=== PATIENT | male | born 1945 | race Caucasian/White ===

== ENCOUNTER 2017-04-06 08:57 | Inpatient (IN) | payer MEDICARE, OTHER ==
[~2017-04-06] VITALS: Ht 170.2 cm; Wt 86.0 kg
[2017-04-06 09:51] LABS: BLOOD UREA NITROGEN 16 mg/dL (7-18)
[2017-04-06] MEDS ORDERED: DEXAMETHASONE 4 MG/ML, 1ML ONE (11:45)
[2017-04-06] MEDS ORDERED: DEXAMETHASONE 4 MG/ML, 1ML IVPush ONE (12:00)
[2017-04-06] MEDS ORDERED: LEVETIRACETAM 500 MG in SODIUM CHLORIDE 0.9% 100 ML IV ONE (12:00)
[2017-04-06] MEDS ORDERED: ONDANSETRON 2MG/ML, 2ML IVPush PRN (13:00)
[2017-04-06] MEDS ORDERED: ENALAPRILAT 1.25 MG/ML, 2ML IVPush PRN (13:00)
[2017-04-06] MEDS ORDERED: POLYETHYLENE GLYCOL 17 GM PACKET PO PRN (13:00)
[2017-04-06] MEDS ORDERED: BISACODYL 10 MG SUPP PR PRN (13:00)
[2017-04-06] MEDS ORDERED: LABETALOL 5MG/ML, 20ML IVPush PRN (13:00)
[2017-04-06] MEDS ORDERED: DOCUSATE 100 MG CAPSULE PO PRN (13:00)
[2017-04-06] MEDS ORDERED: ONDANSETRON ODT 4 MG PO PRN (13:00)
[2017-04-06] MEDS ORDERED: GADOBUTROL 10 MMOL/10 ML PFS ONE (13:02)
[2017-04-06 13:59] VITALS: BP 15/91
[2017-04-06] MEDS: DEXAMETHASONE 4 MG/ML, 1ML IVPush SCH ×2 (14:52→21:34)
[2017-04-06] MEDS: POTASSIUM CHLORIDE 10 MEQ in SODIUM CHLORIDE 0.9% 1,000 ML IV SCH (14:52)
[2017-04-06 18:59] VITALS: BP 147/75
[2017-04-07 00:16] VITALS: BP 122/71
[2017-04-07] MEDS: LEVETIRACETAM 500 MG in SODIUM CHLORIDE 0.9% 100 ML IV SCH ×2 (00:18→13:13)
[2017-04-07] MEDS: POTASSIUM CHLORIDE 10 MEQ in SODIUM CHLORIDE 0.9% 1,000 ML IV SCH (04:45)
[2017-04-07] MEDS: DEXAMETHASONE 4 MG/ML, 1ML IVPush SCH ×2 (04:45→10:17)
[2017-04-07 10:00] VITALS: BP 144/75
[2017-04-07 14:37] VITALS: BP 133/81
[2017-04-07] MEDS ORDERED: DEXA4TAB PO (16:27)
[2017-04-07] MEDS ORDERED: LEVE500T53 PO (16:27)
[2017-04-07] MEDS ORDERED: DEXAMETHASONE 4 MG TABLET PO SCH (17:00)
[2017-04-07] MEDS ORDERED: LEVETIRACETAM 500 MG TABLET PO SCH (21:00)
[2017-04-10] MEDS ORDERED: LEVE500T53 PO (06:12)
[2017-04-10] MEDS ORDERED: DEXAMETHASONE PO (06:12)
[2017-04-13] MEDS ORDERED: OXYC-302 PO (08:49)
[2017-04-15] MEDS ORDERED: DEXA1.5T5 PO (10:22)
== END 2017-04-07 21:57 | disposition home or self-care (01) | DRG 54 ==
LOC: ED 12:01 → 4EST 12:52
PROVIDERS: ADMIT Internal Medicine; ATTEND Internal Medicine
DX: C71.3 Malignant neoplasm of parietal lobe (principal); G93.6 Cerebral edema; G81.91 Hemiplegia, unspecified affecting right dominant side; G93.89 Other specified disorders of brain; M43.12 Spondylolisthesis, cervical region; K59.09 Other constipation; I10 Essential (primary) hypertension; R22.0 Localized swelling, mass and lump, head; Z87.891 Personal history of nicotine dependence
CPT/HCPCS: 36415; 70450; 70553; 71010; 71260; 72050; 74177; 80048; 82040; 85025; 85610; 85730; 93005; 96365; 96366; 96375; A9585; J1100; J1953; J3480; J7030

== ENCOUNTER → 2017-05-08 | Outpatient (CLI) | payer MEDICARE ==
[~2017-05-08] MED LIST: DEXA1.5T5 PO; DEXA4TAB PO; DEXAMETHASONE PO; GADOBUTROL 10 MMOL/10 ML PFS ONE; LEVE500T53 PO; OXYC-302 PO; TAMS0.4C2 PO
== END | disposition home or self-care (01) ==
LOC: CFH 15:14
PROVIDERS: ATTEND Internal Medicine Hematology & Oncology
DX: G93.89 Other specified disorders of brain (principal); C83.31 Diffuse large B-cell lymphoma, lymph nodes of head, face, and neck; Z98.890 Other specified postprocedural states
CPT/HCPCS: 70553; A9585

== ENCOUNTER 2017-05-11 08:00 | Inpatient (IN) | payer MEDICARE ==
[~2017-05-11] VITALS: Ht 167.6 cm; Wt 87.9 kg
[~2017-05-11 08:00] MED LIST changes: -GADOBUTROL 10 MMOL/10 ML PFS ONE; -TAMS0.4C2 PO
[2017-05-11 08:45] VITALS: BP 124/84
[2017-05-11 10:26] LABS: HEMATOCRIT 42.8 % (39.2-51.8); HEMOGLOBIN 14.5 g/dL (13.7-18.0); WHITE BLOOD COUNT 5.5 x10^3/uL (3.4-10)
[2017-05-11 10:37] LABS: ASPARTATE AMINO TRANSFERASE 13 U/L (15-37); BLOOD UREA NITROGEN 13 mg/dL (7-18)
[2017-05-11] MEDS: SODIUM BICARBONATE 650 MG TABLET PO SCH ×2 (13:13→22:31)
[2017-05-11] MEDS: SODIUM ACETATE 150 MEQ in DEXTROSE 5% 1,000 ML IV SCH ×2 (13:13→22:31)
[2017-05-11 14:17] VITALS: BP 126/81
[2017-05-11] MEDS ORDERED: TAMS0.4C2 PO (14:20)
[2017-05-11] MEDS ORDERED: ONDANSETRON 8 MG, DEXAMETHASONE 10 MG in SODIUM CHLORIDE 0.9% 50 ML IVPB ONE (17:00)
[2017-05-11] MEDS ORDERED: FAMOTIDINE 20 MG/2 ML IVPush ONE (17:00)
[2017-05-11] MEDS ORDERED: DIPHENHYDRAMINE 50 MG/ML, 1ML IVPush ONE (17:00)
[2017-05-11] MEDS ORDERED: SODIUM CHLORIDE 0.9% IV ONE (17:30)
[2017-05-11] MEDS ORDERED: METHOTREXATE IV ONE (17:30)
[2017-05-11 19:49] VITALS: BP 132/80
[2017-05-11] MEDS: ENOXAPARIN 40 MG/0.4 ML SQ SCH (20:18)
[2017-05-11] MEDS: LEVETIRACETAM 500 MG TABLET PO SCH (20:19)
[2017-05-12 03:02] VITALS: BP 124/70
[2017-05-12 07:20] VITALS: BP 119/72
[2017-05-12] MEDS ORDERED: ONDANSETRON ODT 8 MG PO PRN (08:00)
[2017-05-12] MEDS: LEVETIRACETAM 500 MG TABLET PO SCH ×2 (09:20→20:12)
[2017-05-12] MEDS: TAMSULOSIN 0.4 MG CAP.ER.24H PO SCH (09:20)
[2017-05-12] MEDS: predniSOLONE OPHTH SUSP 1%, 5ML EACHEYE SCH ×4 (09:21→20:13)
[2017-05-12] MEDS: SODIUM BICARBONATE 650 MG TABLET PO SCH ×2 (09:21→20:13)
[2017-05-12] MEDS ORDERED: ONDANSETRON 8 MG, DEXAMETHASONE 10 MG in SODIUM CHLORIDE 0.9% 50 ML IVPB SCH (10:00)
[2017-05-12] MEDS ORDERED: SODIUM CHLORIDE 0.9% IV SCH (10:30)
[2017-05-12] MEDS ORDERED: CYTARABINE IV SCH (10:30)
[2017-05-12] MEDS: SODIUM ACETATE 150 MEQ in DEXTROSE 5% 1,000 ML IV SCH ×2 (12:43→22:43)
[2017-05-12 13:15] VITALS: BP 116/68
[2017-05-12] MEDS: ONDANSETRON 8 MG, DEXAMETHASONE 10 MG in SODIUM CHLORIDE 0.9% 50 ML IVPB SCH (16:16)
[2017-05-12] MEDS: FAMOTIDINE 20 MG/2 ML IVPush SCH (16:16)
[2017-05-12] MEDS: DIPHENHYDRAMINE 50 MG/ML, 1ML IVPush SCH (16:16)
[2017-05-12] MEDS: OXYcodone/APAP 5/325MG TABLET PO PRN (16:46)
[2017-05-12] MEDS: CYTARABINE IV SCH (17:37)
[2017-05-12] MEDS: SODIUM CHLORIDE 0.9% IV SCH ×2 (17:37→22:43)
[2017-05-12] MEDS ORDERED: LORazepam 0.5MG TABLET PO PRN (19:00)
[2017-05-12] MEDS: ENOXAPARIN 40 MG/0.4 ML SQ SCH (20:13)
[2017-05-12 20:35] VITALS: BP 125/69
[2017-05-12] MEDS: LEUCOVORIN IV SCH (22:43)
[2017-05-13] MEDS: predniSOLONE OPHTH SUSP 1%, 5ML EACHEYE SCH ×6 (00:20→21:10)
[2017-05-13 02:03] VITALS: BP 112/57
[2017-05-13] MEDS: LEUCOVORIN IV SCH ×3 (04:39→19:45)
[2017-05-13] MEDS: SODIUM CHLORIDE 0.9% IV SCH ×5 (04:39→19:45)
[2017-05-13] MEDS: CYTARABINE IV SCH ×2 (05:08→18:14)
[2017-05-13 05:30] LABS: ASPARTATE AMINO TRANSFERASE 18 U/L (15-37); BLOOD UREA NITROGEN 16 mg/dL (7-18)
[2017-05-13 05:34] LABS: HEMATOCRIT 37.5 % (39.2-51.8); HEMOGLOBIN 12.6 g/dL (13.7-18.0); WHITE BLOOD COUNT 8.9 x10^3/uL (3.4-10)
[2017-05-13 07:42] VITALS: BP 117/63
[2017-05-13] MEDS: SODIUM BICARBONATE 650 MG TABLET PO SCH ×2 (11:49→17:14)
[2017-05-13] MEDS: TAMSULOSIN 0.4 MG CAP.ER.24H PO SCH (11:50)
[2017-05-13] MEDS: DOCUSATE 100 MG CAPSULE PO SCH (11:50)
[2017-05-13] MEDS: LEVETIRACETAM 500 MG TABLET PO SCH ×2 (11:50→21:10)
[2017-05-13 14:02] VITALS: BP 153/89
[2017-05-13] MEDS ORDERED: DIPHENHYDRAMINE 50 MG/ML, 1ML ONE (17:11)
[2017-05-13] MEDS: DIPHENHYDRAMINE 50 MG/ML, 1ML IVPush SCH (17:14)
[2017-05-13] MEDS: ONDANSETRON 8 MG, DEXAMETHASONE 10 MG in SODIUM CHLORIDE 0.9% 50 ML IVPB SCH (17:14)
[2017-05-13] MEDS: SODIUM ACETATE 150 MEQ in DEXTROSE 5% 1,000 ML IV SCH ×2 (17:14→17:52)
[2017-05-13] MEDS: FAMOTIDINE 20 MG/2 ML IVPush SCH (17:14)
[2017-05-13 18:39] VITALS: BP 123/67
[2017-05-13] MEDS: ENOXAPARIN 40 MG/0.4 ML SQ SCH (21:10)
[2017-05-14] MEDS: predniSOLONE OPHTH SUSP 1%, 5ML EACHEYE SCH ×7 (00:29→23:57)
[2017-05-14 00:46] VITALS: BP 118/66
[2017-05-14] MEDS: LEUCOVORIN IV SCH ×4 (01:33→20:06)
[2017-05-14] MEDS: SODIUM CHLORIDE 0.9% IV SCH ×5 (01:33→20:06)
[2017-05-14] MEDS: SODIUM ACETATE 150 MEQ in DEXTROSE 5% 1,000 ML IV SCH ×5 (02:50→22:20)
[2017-05-14 04:23] LABS: HEMATOCRIT 35.2 % (39.2-51.8); HEMOGLOBIN 11.9 g/dL (13.7-18.0); WHITE BLOOD COUNT 7.9 x10^3/uL (3.4-10)
[2017-05-14 04:31] LABS: ASPARTATE AMINO TRANSFERASE 24 U/L (15-37); BLOOD UREA NITROGEN 22 mg/dL (7-18)
[2017-05-14] MEDS: CYTARABINE IV SCH (05:21)
[2017-05-14 08:00] VITALS: BP 105/59
[2017-05-14] MEDS: SODIUM BICARBONATE 650 MG TABLET PO SCH (08:22)
[2017-05-14] MEDS: TAMSULOSIN 0.4 MG CAP.ER.24H PO SCH (08:25)
[2017-05-14] MEDS: LEVETIRACETAM 500 MG TABLET PO SCH ×2 (08:25→20:06)
[2017-05-14] MEDS: DOCUSATE 100 MG CAPSULE PO SCH (08:25)
[2017-05-14 13:00] VITALS: BP 114/65
[2017-05-14 18:56] VITALS: BP 126/64
[2017-05-14] MEDS: ENOXAPARIN 40 MG/0.4 ML SQ SCH (20:06)
[2017-05-14] MEDS ORDERED: TBO-FILGRASTIM 480 MCG/0.8 ML SQ SCH (22:00)
[2017-05-15 01:36] VITALS: BP 122/67
[2017-05-15] MEDS: LEUCOVORIN IV SCH ×4 (01:42→21:15)
[2017-05-15] MEDS: OXYcodone/APAP 5/325MG TABLET PO PRN ×2 (01:42→13:08)
[2017-05-15] MEDS: SODIUM CHLORIDE 0.9% IV SCH ×4 (01:42→21:15)
[2017-05-15] MEDS: predniSOLONE OPHTH SUSP 1%, 5ML EACHEYE SCH ×6 (03:57→23:48)
[2017-05-15 04:26] LABS: HEMATOCRIT 32.8 % (39.2-51.8); HEMOGLOBIN 11.1 g/dL (13.7-18.0); WHITE BLOOD COUNT 5.8 x10^3/uL (3.4-10)
[2017-05-15 04:29] LABS: ASPARTATE AMINO TRANSFERASE 24 U/L (15-37); BLOOD UREA NITROGEN 19 mg/dL (7-18)
[2017-05-15] MEDS: SODIUM ACETATE 150 MEQ in DEXTROSE 5% 1,000 ML IV SCH (07:10)
[2017-05-15 08:05] VITALS: BP 120/60
[2017-05-15] MEDS: TAMSULOSIN 0.4 MG CAP.ER.24H PO SCH (09:12)
[2017-05-15] MEDS: TBO-FILGRASTIM 480 MCG/0.8 ML SQ SCH (09:12)
[2017-05-15] MEDS: LEVETIRACETAM 500 MG TABLET PO SCH ×2 (09:12→21:16)
[2017-05-15] MEDS: DOCUSATE 100 MG CAPSULE PO SCH (09:12)
[2017-05-15 14:24] VITALS: BP 116/63
[2017-05-15] MEDS ORDERED: POTASSIUM CHLORIDE 20 MEQ TAB.ER.PRT PO ONE (14:30)
[2017-05-15 20:15] VITALS: BP 119/73
[2017-05-15] MEDS: ENOXAPARIN 40 MG/0.4 ML SQ SCH (21:16)
[2017-05-16] MEDS: SODIUM CHLORIDE 0.9% IV SCH ×3 (02:01→13:55)
[2017-05-16] MEDS: LEUCOVORIN IV SCH ×3 (02:01→13:55)
[2017-05-16 02:03] VITALS: BP 138/86
[2017-05-16] MEDS: predniSOLONE OPHTH SUSP 1%, 5ML EACHEYE SCH ×3 (04:15→23:09)
[2017-05-16 04:26] LABS: HEMATOCRIT 34.8 % (39.2-51.8); HEMOGLOBIN 11.9 g/dL (13.7-18.0); WHITE BLOOD COUNT 7.9 x10^3/uL (3.4-10)
[2017-05-16 04:36] LABS: ASPARTATE AMINO TRANSFERASE 24 U/L (15-37); BLOOD UREA NITROGEN 20 mg/dL (7-18)
[2017-05-16] MEDS: LEVETIRACETAM 500 MG TABLET PO SCH ×2 (08:37→21:22)
[2017-05-16] MEDS: TAMSULOSIN 0.4 MG CAP.ER.24H PO SCH (08:37)
[2017-05-16] MEDS: DOCUSATE 100 MG CAPSULE PO SCH (08:37)
[2017-05-16] MEDS: TBO-FILGRASTIM 480 MCG/0.8 ML SQ SCH (08:41)
[2017-05-16 09:05] VITALS: BP 143/75
[2017-05-16] MEDS ORDERED: ONDA8TAB16 SL (10:16)
[2017-05-16] MEDS ORDERED: PRED5DRO15 EACHEYE (10:21)
[2017-05-16] MEDS ORDERED: CIPR500T3 PO (10:24)
[2017-05-16] MEDS ORDERED: ACYC-114 PO (10:27)
[2017-05-16] MEDS ORDERED: PRED1DRO EACHEYE (10:32)
[2017-05-16 14:18] VITALS: BP 121/73
[2017-05-16 21:04] VITALS: BP 118/70
[2017-05-16] MEDS: ENOXAPARIN 40 MG/0.4 ML SQ SCH (21:22)
[2017-05-17] MEDS: predniSOLONE OPHTH SUSP 1%, 5ML EACHEYE SCH ×6 (03:04→23:32)
[2017-05-17 03:13] LABS: HEMATOCRIT 36.1 % (39.2-51.8); HEMOGLOBIN 12.1 g/dL (13.7-18.0)
[2017-05-17 03:16] VITALS: BP 121/72
[2017-05-17 03:24] LABS: BLOOD UREA NITROGEN 26 mg/dL (7-18)
[2017-05-17 03:26] LABS: ASPARTATE AMINO TRANSFERASE 19 U/L (15-37)
[2017-05-17] MEDS: LEVETIRACETAM 500 MG TABLET PO SCH ×2 (07:41→21:46)
[2017-05-17] MEDS: TAMSULOSIN 0.4 MG CAP.ER.24H PO SCH (07:41)
[2017-05-17] MEDS: DOCUSATE 100 MG CAPSULE PO SCH (07:41)
[2017-05-17 07:54] VITALS: BP 122/77
[2017-05-17] MEDS: TBO-FILGRASTIM 480 MCG/0.8 ML SQ SCH (10:47)
[2017-05-17 13:51] VITALS: BP 114/71
[2017-05-17 19:07] VITALS: BP 123/76
[2017-05-17] MEDS: ENOXAPARIN 40 MG/0.4 ML SQ SCH (21:47)
[2017-05-18 01:14] VITALS: BP 120/79
[2017-05-18] MEDS: predniSOLONE OPHTH SUSP 1%, 5ML EACHEYE SCH ×2 (03:55→07:30)
[2017-05-18 07:13] VITALS: BP 122/81
[2017-05-18] MEDS: TBO-FILGRASTIM 480 MCG/0.8 ML SQ SCH (08:47)
[2017-05-18] MEDS: TAMSULOSIN 0.4 MG CAP.ER.24H PO SCH (08:48)
[2017-05-18] MEDS: DOCUSATE 100 MG CAPSULE PO SCH (08:48)
[2017-05-18] MEDS: LEVETIRACETAM 500 MG TABLET PO SCH (08:48)
[2017-05-23] MEDS ORDERED: LEVO750T26 PO (11:49)
== END 2017-05-18 13:10 | disposition home or self-care (01) | DRG 846 ==
LOC: 3NW 08:00
PROVIDERS: ADMIT Internal Medicine Hematology & Oncology; ATTEND Internal Medicine Hematology & Oncology
DX: Z51.11 Encounter for antineoplastic chemotherapy (principal); E43 Unspecified severe protein-calorie malnutrition; C83.31 Diffuse large B-cell lymphoma, lymph nodes of head, face, and neck; G81.94 Hemiplegia, unspecified affecting left nondominant side; I10 Essential (primary) hypertension; G47.00 Insomnia, unspecified; K59.00 Constipation, unspecified; N40.0 Benign prostatic hyperplasia without lower urinary tract symptoms
CPT/HCPCS: 36415; 80053; 80375; 81003; 83735; 84560; 85025; J1100; J1650; J2405; J7070; J9100; J9250; G0480; J0640; J1200; J1447; J7030; J7050; S0028

== ENCOUNTER 2017-06-01 10:21 | Inpatient (IN) | payer MEDICARE ==
[~2017-06-01] VITALS: Ht 167.6 cm; Wt 87.2 kg
[~2017-06-01 10:21] MED LIST changes: +ACYC-114 PO; +CIPR500T3 PO; +LEVO750T26 PO; +ONDA8TAB16 SL; +PRED1DRO EACHEYE; +PRED5DRO15 EACHEYE; +TAMS0.4C2 PO
[2017-06-01 10:59] VITALS: BP 122/71
[2017-06-01] MEDS ORDERED: ONDA8TAB15 PO (11:26)
[2017-06-01] MEDS ORDERED: OXYC1TAB7 PO (11:29)
[2017-06-01] MEDS ORDERED: PRED1DRO EACHEYE (11:32)
[2017-06-01 11:34] LABS: HEMATOCRIT 30.4 % (39.2-51.8); HEMOGLOBIN 10.4 g/dL (13.7-18.0); WHITE BLOOD COUNT 17.9 x10^3/uL (3.4-10)
[2017-06-01 11:41] LABS: ASPARTATE AMINO TRANSFERASE 23 U/L (15-37); BLOOD UREA NITROGEN 13 mg/dL (7-18)
[2017-06-01] MEDS ORDERED: PROCHLORPERAZINE 25 MG SUPP PR PRN (12:30)
[2017-06-01] MEDS ORDERED: SENNA/DOCUSATE TABLET PO PRN (12:30)
[2017-06-01] MEDS ORDERED: PROCHLORPERAZINE 10MG TABLET PO PRN (12:30)
[2017-06-01] MEDS ORDERED: LOPERAMIDE 2 MG CAPSULE PO PRN (12:30)
[2017-06-01] MEDS ORDERED: BISACODYL 5 MG EC TABLET PO PRN (12:30)
[2017-06-01] MEDS ORDERED: PROCHLORPERAZINE 5 MG/ML, 2ML IVPush PRN (12:30)
[2017-06-01] MEDS ORDERED: NYSTATIN 500,000 UNITS/5 ML UDC PO PRN (12:30)
[2017-06-01] MEDS ORDERED: LOPERAMIDE 2 MG CAPSULE PO ONE (12:30)
[2017-06-01] MEDS ORDERED: ONDANSETRON 8 MG TABLET PO PRN (12:30)
[2017-06-01] MEDS ORDERED: ONDANSETRON 2MG/ML, 2ML IVPush PRN (12:30)
[2017-06-01] MEDS ORDERED: maalox/diphenh/lido/sucralfate 5 ML PO PRN (12:30)
[2017-06-01 12:53] LABS: DIFF TOTAL CELLS COUNTED 100 CELL DIFF
[2017-06-01 12:56] LABS: VERIFY COUNTS? YES
[2017-06-01 12:57] LABS: GIANT PLATELETS 1+; POLYCHROMASIA 2+
[2017-06-01] MEDS: SODIUM BICARB 8.4%,50ML SYR. 150 MEQ in DEXTROSE 5% 1,000 ML IV SCH ×2 (14:16→23:56)
[2017-06-01 17:56] VITALS: BP 127/76
[2017-06-01] MEDS: LEVETIRACETAM 500 MG TABLET PO SCH (19:53)
[2017-06-01] MEDS: ACYCLOVIR 200 MG CAPSULE PO SCH (19:53)
[2017-06-01 20:21] VITALS: BP 130/77
[2017-06-02 02:47] VITALS: BP 123/73
[2017-06-02] MEDS: OXYcodone/APAP 5/325MG TABLET PO PRN ×2 (02:54→09:18)
[2017-06-02] MEDS: LEVETIRACETAM 500 MG TABLET PO SCH ×2 (08:19→19:51)
[2017-06-02] MEDS: ACYCLOVIR 200 MG CAPSULE PO SCH ×2 (08:19→19:51)
[2017-06-02] MEDS: TAMSULOSIN 0.4 MG CAP.ER.24H PO SCH (08:19)
[2017-06-02 09:09] VITALS: BP 113/68
[2017-06-02] MEDS: SODIUM BICARB 8.4%,50ML SYR. 150 MEQ in DEXTROSE 5% 1,000 ML IV SCH ×2 (09:11→18:21)
[2017-06-02] MEDS ORDERED: SODIUM CHLORIDE 0.9% IV ONE ×2 (11:00→11:30)
[2017-06-02] MEDS ORDERED: METHOTREXATE IV ONE ×2 (11:00→11:30)
[2017-06-02] MEDS: FAMOTIDINE 20 MG/2 ML IVPush SCH (11:09)
[2017-06-02] MEDS: DIPHENHYDRAMINE 50 MG/ML, 1ML IVPush SCH (11:09)
[2017-06-02] MEDS: ONDANSETRON 8 MG, DEXAMETHASONE 10 MG in SODIUM CHLORIDE 0.9% 50 ML IVPB SCH (11:09)
[2017-06-02] MEDS: ENOXAPARIN 40 MG/0.4 ML SQ SCH (11:14)
[2017-06-02 13:33] VITALS: BP 113/69
[2017-06-02 15:06] VITALS: BP 136/81
[2017-06-02 20:10] VITALS: BP 127/69
[2017-06-03 02:22] VITALS: BP 124/68
[2017-06-03] MEDS: SODIUM BICARB 8.4%,50ML SYR. 150 MEQ in DEXTROSE 5% 1,000 ML IV SCH ×2 (04:24→13:58)
[2017-06-03 07:50] VITALS: BP 127/70
[2017-06-03] MEDS: ACYCLOVIR 200 MG CAPSULE PO SCH ×2 (10:09→21:13)
[2017-06-03] MEDS: LEVETIRACETAM 500 MG TABLET PO SCH ×2 (10:10→21:13)
[2017-06-03] MEDS: TAMSULOSIN 0.4 MG CAP.ER.24H PO SCH (10:10)
[2017-06-03 12:13] LABS: HEMATOCRIT 26.3 % (39.2-51.8); HEMOGLOBIN 9.1 g/dL (13.7-18.0); WHITE BLOOD COUNT 19.9 x10^3/uL (3.4-10)
[2017-06-03] MEDS: predniSOLONE OPHTH SUSP 1%, 5ML EACHEYE SCH ×3 (12:16→21:00)
[2017-06-03] MEDS: DIPHENHYDRAMINE 50 MG/ML, 1ML IVPush SCH (12:24)
[2017-06-03 12:25] LABS: BLOOD UREA NITROGEN 13 mg/dL (7-18)
[2017-06-03] MEDS: FAMOTIDINE 20 MG/2 ML IVPush SCH (12:25)
[2017-06-03] MEDS: ONDANSETRON 8 MG, DEXAMETHASONE 10 MG in SODIUM CHLORIDE 0.9% 50 ML IVPB SCH (12:25)
[2017-06-03] MEDS: ENOXAPARIN 40 MG/0.4 ML SQ SCH (12:25)
[2017-06-03 12:28] LABS: ASPARTATE AMINO TRANSFERASE 20 U/L (15-37)
[2017-06-03 12:50] LABS: DIFF TOTAL CELLS COUNTED 100 CELL DIFF
[2017-06-03 12:52] LABS: POLYCHROMASIA 1+; VERIFY COUNTS? YES
[2017-06-03 13:32] VITALS: BP 105/53
[2017-06-03] MEDS: SODIUM CHLORIDE 0.9% IV SCH ×3 (13:56→23:02)
[2017-06-03] MEDS: CYTARABINE IV SCH (13:56)
[2017-06-03] MEDS: LEUCOVORIN IV SCH ×2 (17:16→23:02)
[2017-06-03 19:40] VITALS: BP 132/70
[2017-06-04] MEDS: predniSOLONE OPHTH SUSP 1%, 5ML EACHEYE SCH ×6 (01:00→20:43)
[2017-06-04 01:24] VITALS: BP 134/75
[2017-06-04] MEDS: SODIUM CHLORIDE 0.9% IV SCH ×5 (01:39→18:28)
[2017-06-04] MEDS: CYTARABINE IV SCH ×2 (01:39→13:47)
[2017-06-04] MEDS: DEXTROSE 5% IV SCH ×2 (01:56→16:49)
[2017-06-04] MEDS: SODIUM BICARB 8.4% IV SCH ×2 (01:56→16:49)
[2017-06-04] MEDS: LEUCOVORIN IV SCH ×3 (05:18→18:28)
[2017-06-04 05:45] LABS: HEMATOCRIT 26.1 % (39.2-51.8); HEMOGLOBIN 9.1 g/dL (13.7-18.0); WHITE BLOOD COUNT 12.1 x10^3/uL (3.4-10)
[2017-06-04 06:07] LABS: BLOOD UREA NITROGEN 19 mg/dL (7-18)
[2017-06-04 06:10] LABS: ASPARTATE AMINO TRANSFERASE 27 U/L (15-37)
[2017-06-04 07:04] VITALS: BP 128/72
[2017-06-04] MEDS: LEVETIRACETAM 500 MG TABLET PO SCH ×2 (09:42→20:43)
[2017-06-04] MEDS: TAMSULOSIN 0.4 MG CAP.ER.24H PO SCH (09:42)
[2017-06-04] MEDS: ACYCLOVIR 200 MG CAPSULE PO SCH ×2 (09:42→20:43)
[2017-06-04] MEDS: FAMOTIDINE 20 MG/2 ML IVPush SCH (11:25)
[2017-06-04] MEDS: ENOXAPARIN 40 MG/0.4 ML SQ SCH (11:27)
[2017-06-04] MEDS: DIPHENHYDRAMINE 50 MG/ML, 1ML IVPush SCH (11:35)
[2017-06-04] MEDS: ONDANSETRON 8 MG, DEXAMETHASONE 10 MG in SODIUM CHLORIDE 0.9% 50 ML IVPB SCH (12:14)
[2017-06-04 13:45] VITALS: BP 119/68
[2017-06-04] MEDS ORDERED: DEXTROSE 5% IV SCH ×2 (14:00→17:00)
[2017-06-04] MEDS ORDERED: SODIUM BICARB 8.4% IV SCH ×2 (14:00→17:00)
[2017-06-04] MEDS ORDERED: SODIUM BICARB 8.4%,50ML SYR. 150 MEQ in DEXTROSE 5% 1,000 ML IV SCH (14:00)
[2017-06-04 20:16] VITALS: BP 125/76
[2017-06-05] MEDS: LEUCOVORIN IV SCH ×4 (01:16→19:54)
[2017-06-05] MEDS: SODIUM CHLORIDE 0.9% IV SCH ×5 (01:16→19:54)
[2017-06-05] MEDS: predniSOLONE OPHTH SUSP 1%, 5ML EACHEYE SCH ×6 (01:17→19:56)
[2017-06-05] MEDS: CYTARABINE IV SCH (01:47)
[2017-06-05 02:32] VITALS: BP 137/80
[2017-06-05] MEDS: OXYcodone/APAP 5/325MG TABLET PO PRN ×3 (03:05→16:23)
[2017-06-05 05:55] LABS: HEMATOCRIT 24.3 % (39.2-51.8); HEMOGLOBIN 8.5 g/dL (13.7-18.0); WHITE BLOOD COUNT 8.5 x10^3/uL (3.4-10)
[2017-06-05 06:10] LABS: ASPARTATE AMINO TRANSFERASE 36 U/L (15-37); BLOOD UREA NITROGEN 21 mg/dL (7-18)
[2017-06-05 07:08] VITALS: BP 128/76
[2017-06-05] MEDS: ACYCLOVIR 200 MG CAPSULE PO SCH ×2 (07:43→19:56)
[2017-06-05] MEDS: LEVETIRACETAM 500 MG TABLET PO SCH ×2 (07:43→19:55)
[2017-06-05] MEDS: TAMSULOSIN 0.4 MG CAP.ER.24H PO SCH (07:43)
[2017-06-05 12:41] VITALS: BP 115/70
[2017-06-05] MEDS: SODIUM BICARB 8.4% IV SCH ×2 (13:15→22:51)
[2017-06-05] MEDS: ENOXAPARIN 40 MG/0.4 ML SQ SCH (13:15)
[2017-06-05] MEDS: DEXTROSE 5% IV SCH ×2 (13:15→22:51)
[2017-06-05 18:56] VITALS: BP 112/67
[2017-06-06 00:55] VITALS: BP 116/75
[2017-06-06] MEDS: SODIUM CHLORIDE 0.9% IV SCH ×4 (01:32→19:37)
[2017-06-06] MEDS: predniSOLONE OPHTH SUSP 1%, 5ML EACHEYE SCH ×6 (01:32→19:36)
[2017-06-06] MEDS: LEUCOVORIN IV SCH ×4 (01:32→19:37)
[2017-06-06] MEDS: TBO-FILGRASTIM 480 MCG/0.8 ML SQ SCH (05:15)
[2017-06-06 05:37] LABS: HEMATOCRIT 24.7 % (39.2-51.8); HEMOGLOBIN 8.6 g/dL (13.7-18.0); WHITE BLOOD COUNT 4.9 x10^3/uL (3.4-10)
[2017-06-06 05:47] LABS: BLOOD UREA NITROGEN 16 mg/dL (7-18)
[2017-06-06 05:52] LABS: ASPARTATE AMINO TRANSFERASE 71 U/L (15-37)
[2017-06-06] MEDS: DEXTROSE 5% IV SCH ×3 (06:16→23:31)
[2017-06-06] MEDS: SODIUM BICARB 8.4% IV SCH ×3 (06:16→23:31)
[2017-06-06] MEDS: TAMSULOSIN 0.4 MG CAP.ER.24H PO SCH (08:04)
[2017-06-06] MEDS: LEVETIRACETAM 500 MG TABLET PO SCH ×2 (08:04→19:37)
[2017-06-06] MEDS: ACYCLOVIR 200 MG CAPSULE PO SCH ×2 (08:04→19:37)
[2017-06-06 08:50] VITALS: BP 110/70
[2017-06-06 14:21] VITALS: BP 116/74
[2017-06-06] MEDS: ENOXAPARIN 40 MG/0.4 ML SQ SCH (14:23)
[2017-06-06] MEDS: OMEPRAZOLE 20 MG CAPSULE.DR PO SCH (14:24)
[2017-06-06 18:21] VITALS: BP 119/76
[2017-06-07] MEDS: predniSOLONE OPHTH SUSP 1%, 5ML EACHEYE SCH ×3 (01:25→08:31)
[2017-06-07] MEDS: SODIUM CHLORIDE 0.9% IV SCH ×4 (01:27→20:20)
[2017-06-07] MEDS: LEUCOVORIN IV SCH ×4 (01:27→20:20)
[2017-06-07 02:08] VITALS: BP 99/64
[2017-06-07] MEDS: TBO-FILGRASTIM 480 MCG/0.8 ML SQ SCH (04:49)
[2017-06-07 05:29] LABS: HEMATOCRIT 23.5 % (39.2-51.8); HEMOGLOBIN 8.1 g/dL (13.7-18.0); WHITE BLOOD COUNT 16.7 x10^3/uL (3.4-10)
[2017-06-07 05:52] LABS: ASPARTATE AMINO TRANSFERASE 40 U/L (15-37); BLOOD UREA NITROGEN 17 mg/dL (7-18)
[2017-06-07] MEDS: OMEPRAZOLE 20 MG CAPSULE.DR PO SCH (08:30)
[2017-06-07] MEDS: LEVETIRACETAM 500 MG TABLET PO SCH ×2 (08:31→20:21)
[2017-06-07] MEDS: ACYCLOVIR 200 MG CAPSULE PO SCH ×2 (08:31→20:21)
[2017-06-07] MEDS: TAMSULOSIN 0.4 MG CAP.ER.24H PO SCH (08:31)
[2017-06-07 09:07] VITALS: BP 117/76
[2017-06-07] MEDS: ENOXAPARIN 40 MG/0.4 ML SQ SCH (12:41)
[2017-06-07 14:01] VITALS: BP 113/75
[2017-06-07] MEDS ORDERED: SODIUM BICARB 8.4% IV SCH (17:00)
[2017-06-07] MEDS ORDERED: DEXTROSE 5% IV SCH (17:00)
[2017-06-07 19:35] VITALS: BP 107/68
[2017-06-08 01:41] VITALS: BP 125/73
[2017-06-08] MEDS: LEUCOVORIN IV SCH ×2 (01:44→09:16)
[2017-06-08] MEDS: SODIUM CHLORIDE 0.9% IV SCH ×2 (01:44→09:16)
[2017-06-08] MEDS: TBO-FILGRASTIM 480 MCG/0.8 ML SQ SCH (04:41)
[2017-06-08 05:15] LABS: HEMOGLOBIN 7.8 g/dL (13.7-18.0); WHITE BLOOD COUNT 10.8 x10^3/uL (3.4-10)
[2017-06-08 05:19] LABS: ASPARTATE AMINO TRANSFERASE 21 U/L (15-37); BLOOD UREA NITROGEN 20 mg/dL (7-18)
[2017-06-08 05:21] LABS: HEMATOCRIT 22.5 % (39.2-51.8)
[2017-06-08 07:57] VITALS: BP 119/67
[2017-06-08] MEDS: LEVETIRACETAM 500 MG TABLET PO SCH (09:16)
[2017-06-08] MEDS: TAMSULOSIN 0.4 MG CAP.ER.24H PO SCH (09:16)
[2017-06-08] MEDS: OMEPRAZOLE 20 MG CAPSULE.DR PO SCH (09:16)
[2017-06-08] MEDS: ACYCLOVIR 200 MG CAPSULE PO SCH (09:17)
[2017-06-08] MEDS: ENOXAPARIN 40 MG/0.4 ML SQ SCH (12:25)
[2017-06-08 14:34] VITALS: BP 124/79
== END 2017-06-08 15:50 | disposition home or self-care (01) | DRG 846 ==
LOC: 3NW 10:24
PROVIDERS: ADMIT Internal Medicine Hematology & Oncology; ATTEND Internal Medicine Hematology & Oncology
DX: Z51.11 Encounter for antineoplastic chemotherapy (principal); E43 Unspecified severe protein-calorie malnutrition; C85.91 Non-Hodgkin lymphoma, unspecified, lymph nodes of head, face, and neck; D64.9 Anemia, unspecified; D62 Acute posthemorrhagic anemia
CPT/HCPCS: 36415; 80053; 80375; 81003; 83735; 85025; J1100; J1650; J2405; J7070; J9100; J9250; Q0162; G0480; J0640; J1200; J1447; J7030; J7050; S0028

== ENCOUNTER 2017-06-22 08:57 | Inpatient (IN) | payer MEDICARE ==
[~2017-06-22] VITALS: Ht 167.6 cm; Wt 76.9 kg
[~2017-06-22 08:57] MED LIST changes: +ONDA8TAB15 PO; +OXYC1TAB7 PO
[2017-06-22 09:24] VITALS: BP 137/55
[2017-06-22 10:05] LABS: ASPARTATE AMINO TRANSFERASE 28 U/L (15-37); BLOOD UREA NITROGEN 15 mg/dL (7-18)
[2017-06-22 10:08] LABS: LACTATE DEHYDROGENASE 629 U/L (87-241)
[2017-06-22 10:28] LABS: DIFF TOTAL CELLS COUNTED 100 CELL DIFF
[2017-06-22] MEDS ORDERED: DIPHENHYDRAMINE 25 MG CAPSULE PO PRN (10:30)
[2017-06-22 10:36] LABS: VERIFY COUNTS? YES
[2017-06-22 10:46] LABS: ANISOCYTOSIS 1+; POLYCHROMASIA 1+
[2017-06-22] MEDS ORDERED: FAMOTIDINE 20 MG/2 ML IVPush SCH ×2 (11:00→21:30)
[2017-06-22] MEDS ORDERED: ONDANSETRON 8 MG, DEXAMETHASONE 10 MG in SODIUM CHLORIDE 0.9% 50 ML IVPB SCH ×2 (11:00→21:30)
[2017-06-22] MEDS: SODIUM BICARBONATE 8.4% 150 MEQ in DEXTROSE 5% 1,000 ML IV SCH ×2 (11:27→20:44)
[2017-06-22] MEDS: ENOXAPARIN 40 MG/0.4 ML SQ SCH (11:27)
[2017-06-22] MEDS ORDERED: METHOTREXATE IV ONE ×2 (12:00→22:00)
[2017-06-22] MEDS ORDERED: SODIUM CHLORIDE 0.9% IV ONE ×2 (12:00→22:00)
[2017-06-22] MEDS: LEVETIRACETAM 500 MG TABLET PO SCH ×2 (12:17→20:44)
[2017-06-22] MEDS: TAMSULOSIN 0.4 MG CAP.ER.24H PO SCH (12:17)
[2017-06-22] MEDS ORDERED: ONDANSETRON ODT 4 MG ONE (13:09)
[2017-06-22] MEDS ORDERED: PROCHLORPERAZINE 10MG TABLET PO PRN (13:30)
[2017-06-22 14:27] VITALS: BP 150/88
[2017-06-22] MEDS: OXYcodone/APAP 5/325MG TABLET PO PRN (15:14)
[2017-06-22 19:51] VITALS: BP 126/75
[2017-06-22] MEDS: SODIUM BICARBONATE 650 MG TABLET PO SCH (21:01)
[2017-06-22] MEDS ORDERED: DIPHENHYDRAMINE 25 MG CAPSULE PO SCH (21:30)
[2017-06-23 02:07] VITALS: BP 128/75
[2017-06-23] MEDS: SODIUM BICARBONATE 650 MG TABLET PO SCH ×3 (02:53→15:40)
[2017-06-23] MEDS: SODIUM BICARBONATE 8.4% 150 MEQ in DEXTROSE 5% 1,000 ML IV SCH ×2 (07:26→17:29)
[2017-06-23 07:53] VITALS: BP 139/82
[2017-06-23] MEDS ORDERED: predniSOLONE OPHTH SUSP 1%, 5ML EACHEYE SCH (09:00)
[2017-06-23] MEDS: predniSOLONE OPHTH SUSP 1%, 5ML EACHEYE SCH ×4 (09:51→20:12)
[2017-06-23] MEDS: TAMSULOSIN 0.4 MG CAP.ER.24H PO SCH (09:59)
[2017-06-23] MEDS: LEVETIRACETAM 500 MG TABLET PO SCH ×2 (09:59→20:12)
[2017-06-23] MEDS: ENOXAPARIN 40 MG/0.4 ML SQ SCH (11:09)
[2017-06-23 12:44] VITALS: BP 137/74
[2017-06-23 15:19] LABS: HEMOGLOBIN 8.2 g/dL (13.7-18.0); WHITE BLOOD COUNT 17.8 x10^3/uL (3.4-10)
[2017-06-23 15:32] LABS: BLOOD UREA NITROGEN 11 mg/dL (7-18)
[2017-06-23 15:36] LABS: ASPARTATE AMINO TRANSFERASE 21 U/L (15-37)
[2017-06-23 16:16] LABS: DIFF TOTAL CELLS COUNTED 100 CELL DIFF
[2017-06-23 16:19] LABS: ANISOCYTOSIS 1+; VERIFY COUNTS? YES
[2017-06-23 16:20] LABS: POLYCHROMASIA 2+
[2017-06-23 19:15] VITALS: BP_SYST 130; BP_SYST 134; BP_DIAS 61; BP_DIAS 70
[2017-06-24] MEDS: predniSOLONE OPHTH SUSP 1%, 5ML EACHEYE SCH ×6 (01:39→21:03)
[2017-06-24 01:44] VITALS: BP 124/70
[2017-06-24] MEDS: SODIUM BICARBONATE 8.4% 150 MEQ in DEXTROSE 5% 1,000 ML IV SCH ×3 (03:18→22:46)
[2017-06-24 05:25] LABS: HEMATOCRIT 23.3 % (39.2-51.8); WHITE BLOOD COUNT 15.5 x10^3/uL (3.4-10)
[2017-06-24 05:37] LABS: BLOOD UREA NITROGEN 12 mg/dL (7-18)
[2017-06-24 05:41] LABS: ASPARTATE AMINO TRANSFERASE 27 U/L (15-37)
[2017-06-24 05:53] LABS: DIFF TOTAL CELLS COUNTED 100 CELL DIFF
[2017-06-24 05:55] LABS: VERIFY COUNTS? YES
[2017-06-24 05:56] LABS: ANISOCYTOSIS 1+; POLYCHROMASIA 2+
[2017-06-24 07:39] VITALS: BP 109/61
[2017-06-24] MEDS: FAMOTIDINE 20 MG/2 ML IVPush SCH (08:34)
[2017-06-24] MEDS: DIPHENHYDRAMINE 25 MG CAPSULE PO SCH (08:34)
[2017-06-24] MEDS: ONDANSETRON 8 MG, DEXAMETHASONE 10 MG in SODIUM CHLORIDE 0.9% 50 ML IVPB SCH (08:34)
[2017-06-24] MEDS: TAMSULOSIN 0.4 MG CAP.ER.24H PO SCH (09:27)
[2017-06-24] MEDS: LEVETIRACETAM 500 MG TABLET PO SCH ×2 (09:27→21:03)
[2017-06-24] MEDS: SODIUM CHLORIDE 0.9% IV SCH ×5 (09:33→21:35)
[2017-06-24] MEDS: CYTARABINE IV SCH ×2 (09:33→21:35)
[2017-06-24] MEDS: LEUCOVORIN IV SCH ×3 (09:36→21:03)
[2017-06-24] MEDS: ENOXAPARIN 40 MG/0.4 ML SQ SCH (12:33)
[2017-06-24 16:06] VITALS: BP 144/80
[2017-06-24 18:40] VITALS: BP 147/81
[2017-06-25] MEDS: predniSOLONE OPHTH SUSP 1%, 5ML EACHEYE SCH ×6 (00:38→21:52)
[2017-06-25 02:53] VITALS: BP 125/70
[2017-06-25] MEDS: LEUCOVORIN IV SCH ×3 (02:57→19:02)
[2017-06-25] MEDS: SODIUM CHLORIDE 0.9% IV SCH ×5 (02:57→22:05)
[2017-06-25 04:56] LABS: ASPARTATE AMINO TRANSFERASE 38 U/L (15-37); BLOOD UREA NITROGEN 19 mg/dL (7-18)
[2017-06-25 05:02] LABS: HEMATOCRIT 25.7 % (39.2-51.8); HEMOGLOBIN 8.6 g/dL (13.7-18.0); WHITE BLOOD COUNT 11.8 x10^3/uL (3.4-10)
[2017-06-25 07:29] VITALS: BP 131/73
[2017-06-25] MEDS: OXYcodone/APAP 5/325MG TABLET PO PRN (07:59)
[2017-06-25] MEDS: SODIUM BICARBONATE 8.4% 150 MEQ in DEXTROSE 5% 1,000 ML IV SCH ×2 (09:11→19:35)
[2017-06-25] MEDS: ONDANSETRON 8 MG, DEXAMETHASONE 10 MG in SODIUM CHLORIDE 0.9% 50 ML IVPB SCH (09:11)
[2017-06-25] MEDS: DIPHENHYDRAMINE 25 MG CAPSULE PO SCH (09:11)
[2017-06-25] MEDS: FAMOTIDINE 20 MG/2 ML IVPush SCH (09:11)
[2017-06-25] MEDS: LEVETIRACETAM 500 MG TABLET PO SCH ×2 (09:13→21:52)
[2017-06-25] MEDS: TAMSULOSIN 0.4 MG CAP.ER.24H PO SCH (09:13)
[2017-06-25] MEDS: CYTARABINE IV SCH ×2 (10:15→22:05)
[2017-06-25] MEDS: ENOXAPARIN 40 MG/0.4 ML SQ SCH (12:09)
[2017-06-25 14:50] VITALS: BP 124/70
[2017-06-25 19:47] VITALS: BP 144/72
[2017-06-26] VITALS (11 sets, daily range): BP systolic 110–156; BP diastolic 61–85
[2017-06-26] MEDS: predniSOLONE OPHTH SUSP 1%, 5ML EACHEYE SCH ×7 (01:09→22:30)
[2017-06-26] MEDS: LEUCOVORIN IV SCH ×5 (01:09→23:47)
[2017-06-26] MEDS: SODIUM CHLORIDE 0.9% IV SCH ×5 (01:09→23:47)
[2017-06-26 02:00] LABS: ASPARTATE AMINO TRANSFERASE 27 U/L (15-37); BLOOD UREA NITROGEN 18 mg/dL (7-18)
[2017-06-26 02:03] LABS: HEMOGLOBIN 7.5 g/dL (13.7-18.0); WHITE BLOOD COUNT 10.8 x10^3/uL (3.4-10)
[2017-06-26] MEDS: OXYcodone/APAP 5/325MG TABLET PO PRN ×2 (05:58→15:17)
[2017-06-26] MEDS: SODIUM BICARBONATE 8.4% 150 MEQ in DEXTROSE 5% 1,000 ML IV SCH ×2 (05:58→16:33)
[2017-06-26] MEDS ORDERED: DIPHENHYDRAMINE 25 MG CAPSULE PO ONE (07:30)
[2017-06-26] MEDS ORDERED: ACETAMINOPHEN 325 MG TABLET PO ONE (07:30)
[2017-06-26] MEDS: TAMSULOSIN 0.4 MG CAP.ER.24H PO SCH (08:34)
[2017-06-26] MEDS: LEVETIRACETAM 500 MG TABLET PO SCH ×2 (08:34→20:43)
[2017-06-26] MEDS: ENOXAPARIN 40 MG/0.4 ML SQ SCH (11:16)
[2017-06-26] MEDS ORDERED: LORazepam 1MG TABLET PO PRN (20:30)
[2017-06-26] MEDS ORDERED: LORazepam 2 MG/ML, 1ML IVPush PRN (20:30)
[2017-06-26] MEDS ORDERED: LORazepam 1MG TABLET ONE (20:41)
[2017-06-26] MEDS: LORazepam 0.5MG TABLET PO PRN (20:43)
[2017-06-26 21:43] LABS: PATH.CAST-FLAG NOT PRESENT; SPERM-FLAG NOT PRESENT; SRC-FLAG NOT PRESENT; XTAL-FLAG NOT PRESENT; YLC-FLAG NOT PRESENT
[2017-06-26] MEDS ORDERED: ACETAMINOPHEN 325 MG TABLET PO PRN (23:00)
[2017-06-26] MEDS: CEFEPIME 1 GM in DEXTROSE 5% 50 ML IV SCH (23:48)
[2017-06-27] MEDS: SODIUM BICARBONATE 8.4% 150 MEQ in DEXTROSE 5% 1,000 ML IV SCH ×2 (00:40→20:09)
[2017-06-27] MEDS: TBO-FILGRASTIM 480 MCG/0.8 ML SQ SCH (01:00)
[2017-06-27] MEDS: predniSOLONE OPHTH SUSP 1%, 5ML EACHEYE SCH ×6 (02:30→22:32)
[2017-06-27] MEDS: SODIUM CHLORIDE 0.9% IV SCH ×3 (06:09→18:32)
[2017-06-27] MEDS: LEUCOVORIN IV SCH ×3 (06:09→18:32)
[2017-06-27 07:08] VITALS: BP 145/83
[2017-06-27 07:44] LABS: HEMATOCRIT 24.9 % (39.2-51.8); HEMOGLOBIN 8.6 g/dL (13.7-18.0)
[2017-06-27] MEDS ORDERED: ONDANSETRON ODT 4 MG ONE (07:47)
[2017-06-27] MEDS: ONDANSETRON ODT 8 MG PO PRN (07:50)
[2017-06-27 07:55] LABS: ASPARTATE AMINO TRANSFERASE 32 U/L (15-37); BLOOD UREA NITROGEN 19 mg/dL (7-18)
[2017-06-27] MEDS: TAMSULOSIN 0.4 MG CAP.ER.24H PO SCH (08:39)
[2017-06-27] MEDS: LEVETIRACETAM 500 MG TABLET PO SCH ×2 (08:39→20:08)
[2017-06-27] MEDS: LORazepam 0.5MG TABLET PO PRN (10:45)
[2017-06-27] MEDS: ENOXAPARIN 40 MG/0.4 ML SQ SCH (11:16)
[2017-06-27] MEDS: CEFEPIME 1 GM in DEXTROSE 5% 50 ML IV SCH (11:32)
[2017-06-27 12:50] VITALS: BP 130/80
[2017-06-27] MEDS ORDERED: CEFEPIME 2 GM in DEXTROSE 5% 100 ML IV SCH (15:00)
[2017-06-27] MEDS: CEFEPIME 2 GM in DEXTROSE 5% 50 ML IV SCH ×2 (15:27→22:32)
[2017-06-27] MEDS ORDERED: VANCOMYCIN PER PHARMACY MC PRN (15:30)
[2017-06-27] MEDS ORDERED: PHARMACOKINETIC MONITORING MC PRN (16:00)
[2017-06-27] MEDS: VANCOMYCIN 1,700 MG in SODIUM CHLORIDE 0.9% 250 ML IV SCH (16:40)
[2017-06-27 19:45] VITALS: BP 124/85
[2017-06-28 00:12] VITALS: BP 125/72
[2017-06-28] MEDS: SODIUM CHLORIDE 0.9% IV SCH ×3 (00:16→12:00)
[2017-06-28] MEDS: LEUCOVORIN IV SCH ×3 (00:16→12:00)
[2017-06-28] MEDS: TBO-FILGRASTIM 480 MCG/0.8 ML SQ SCH (00:16)
[2017-06-28 05:37] LABS: HEMATOCRIT 26.7 % (39.2-51.8); WHITE BLOOD COUNT 18.2 x10^3/uL (3.4-10)
[2017-06-28 05:41] LABS: ASPARTATE AMINO TRANSFERASE 25 U/L (15-37); BLOOD UREA NITROGEN 17 mg/dL (7-18)
[2017-06-28 05:52] LABS: DIFF TOTAL CELLS COUNTED 100 CELL DIFF
[2017-06-28 05:53] LABS: VERIFY COUNTS? YES
[2017-06-28 05:54] LABS: ANISOCYTOSIS 1+
[2017-06-28] MEDS: CEFEPIME 2 GM in DEXTROSE 5% 50 ML IV SCH ×2 (07:43→16:37)
[2017-06-28 08:50] VITALS: BP 140/83
[2017-06-28] MEDS: LEVETIRACETAM 500 MG TABLET PO SCH ×2 (10:22→20:37)
[2017-06-28] MEDS: TAMSULOSIN 0.4 MG CAP.ER.24H PO SCH (10:22)
[2017-06-28] MEDS: ENOXAPARIN 40 MG/0.4 ML SQ SCH (11:25)
[2017-06-28] MEDS: SODIUM BICARBONATE 8.4% 150 MEQ in DEXTROSE 5% 1,000 ML IV SCH (12:00)
[2017-06-28 15:13] VITALS: BP 119/66
[2017-06-28] MEDS: VANCOMYCIN 1,700 MG in SODIUM CHLORIDE 0.9% 250 ML IV SCH (17:00)
[2017-06-28] MEDS ORDERED: PROCHLORPERAZINE 10MG TABLET PO PRN (18:30)
[2017-06-28 19:09] VITALS: BP 144/87
[2017-06-28] MEDS: ONDANSETRON ODT 8 MG PO PRN (20:37)
[2017-06-29] MEDS: CEFEPIME 2 GM in DEXTROSE 5% 50 ML IV SCH ×3 (00:30→20:50)
[2017-06-29 03:31] VITALS: BP 110/72
[2017-06-29 03:42] LABS: HEMATOCRIT 23.7 % (39.2-51.8); HEMOGLOBIN 8.1 g/dL (13.7-18.0); WHITE BLOOD COUNT 9.4 x10^3/uL (3.4-10)
[2017-06-29 03:55] LABS: BLOOD UREA NITROGEN 19 mg/dL (7-18)
[2017-06-29 03:58] LABS: ASPARTATE AMINO TRANSFERASE 22 U/L (15-37)
[2017-06-29] MEDS ORDERED: TBO-FILGRASTIM 480 MCG/0.8 ML SQ SCH (08:00)
[2017-06-29 08:10] VITALS: BP 109/68
[2017-06-29] MEDS: TAMSULOSIN 0.4 MG CAP.ER.24H PO SCH (09:46)
[2017-06-29] MEDS: LEVETIRACETAM 500 MG TABLET PO SCH ×2 (09:46→20:50)
[2017-06-29] MEDS: TBO-FILGRASTIM 480 MCG/0.8 ML SQ SCH (09:47)
[2017-06-29] MEDS: ENOXAPARIN 40 MG/0.4 ML SQ SCH (13:50)
[2017-06-29 14:13] VITALS: BP 114/69
[2017-06-29] MEDS: VANCOMYCIN 1,700 MG in SODIUM CHLORIDE 0.9% 250 ML IV SCH (16:15)
[2017-06-29 19:37] VITALS: BP 115/76
[2017-06-30 02:00] VITALS: BP 122/70
[2017-06-30] MEDS: CEFEPIME 2 GM in DEXTROSE 5% 50 ML IV SCH ×3 (04:49→20:15)
[2017-06-30 05:37] LABS: ASPARTATE AMINO TRANSFERASE 16 U/L (15-37); BLOOD UREA NITROGEN 21 mg/dL (7-18)
[2017-06-30 06:08] LABS: HEMATOCRIT 23.1 % (39.2-51.8); HEMOGLOBIN 8.3 g/dL (13.7-18.0); WHITE BLOOD COUNT 3.6 x10^3/uL (3.4-10)
[2017-06-30 07:25] VITALS: BP 122/74
[2017-06-30] MEDS: TAMSULOSIN 0.4 MG CAP.ER.24H PO SCH (09:02)
[2017-06-30] MEDS: LEVETIRACETAM 500 MG TABLET PO SCH ×2 (09:03→20:15)
[2017-06-30] MEDS: TBO-FILGRASTIM 480 MCG/0.8 ML SQ SCH (09:22)
[2017-06-30] MEDS: ENOXAPARIN 40 MG/0.4 ML SQ SCH (10:53)
[2017-06-30 13:53] VITALS: BP 116/68
[2017-06-30] MEDS: ONDANSETRON ODT 8 MG PO PRN (15:20)
[2017-06-30 20:03] VITALS: BP 128/71
[2017-07-01] VITALS (10 sets, daily range): BP systolic 106–131; BP diastolic 58–75
[2017-07-01] MEDS: CEFEPIME 2 GM in DEXTROSE 5% 50 ML IV SCH ×3 (05:36→19:58)
[2017-07-01] MEDS: TAMSULOSIN 0.4 MG CAP.ER.24H PO SCH (09:00)
[2017-07-01] MEDS: LEVETIRACETAM 500 MG TABLET PO SCH ×2 (09:00→19:58)
[2017-07-01] MEDS: TBO-FILGRASTIM 480 MCG/0.8 ML SQ SCH (09:01)
[2017-07-01] MEDS: ENOXAPARIN 40 MG/0.4 ML SQ SCH (11:20)
[2017-07-01 11:57] LABS: HEMOGLOBIN 7.4 g/dL (13.7-18.0)
[2017-07-01 12:44] LABS: HEMATOCRIT 21.2 % (39.2-51.8); WHITE BLOOD COUNT 0.4 x10^3/uL (3.4-10)
[2017-07-01 12:49] LABS: ANISOCYTOSIS 1+; DIFF TOTAL CELLS COUNTED 50 CELL DIFFERENTIAL; MICROCYTOSIS 1+
[2017-07-01 12:50] LABS: VERIFY COUNTS? YES
[2017-07-02 01:17] VITALS: BP 126/67
[2017-07-02] MEDS: CEFEPIME 2 GM in DEXTROSE 5% 50 ML IV SCH ×3 (04:59→20:36)
[2017-07-02 05:37] LABS: HEMATOCRIT 26.1 % (39.2-51.8); HEMOGLOBIN 9.1 g/dL (13.7-18.0)
[2017-07-02 05:41] LABS: WHITE BLOOD COUNT 0.4 x10^3/uL (3.4-10)
[2017-07-02 06:02] LABS: ASPARTATE AMINO TRANSFERASE 12 U/L (15-37); BLOOD UREA NITROGEN 19 mg/dL (7-18)
[2017-07-02 06:09] LABS: DIFF TOTAL CELLS COUNTED 25 CELL DIFFERENTIAL
[2017-07-02 06:10] LABS: ANISOCYTOSIS 1+; VERIFY COUNTS? YES
[2017-07-02 07:05] VITALS: BP 122/77
[2017-07-02] MEDS: LEVETIRACETAM 500 MG TABLET PO SCH ×2 (08:22→20:37)
[2017-07-02] MEDS: TBO-FILGRASTIM 480 MCG/0.8 ML SQ SCH (08:22)
[2017-07-02] MEDS: TAMSULOSIN 0.4 MG CAP.ER.24H PO SCH (08:22)
[2017-07-02 13:19] VITALS: BP 115/52
[2017-07-02 20:45] VITALS: BP 133/66
[2017-07-03 03:07] VITALS: BP 128/74
[2017-07-03] MEDS: CEFEPIME 2 GM in DEXTROSE 5% 50 ML IV SCH ×3 (05:22→22:01)
[2017-07-03 05:59] LABS: ASPARTATE AMINO TRANSFERASE 8 U/L (15-37); BLOOD UREA NITROGEN 17 mg/dL (7-18)
[2017-07-03 06:53] LABS: HEMATOCRIT 24.4 % (39.2-51.8); HEMOGLOBIN 8.7 g/dL (13.7-18.0)
[2017-07-03 06:54] LABS: WHITE BLOOD COUNT 0.6 x10^3/uL (3.4-10)
[2017-07-03 06:55] LABS: DIFF TOTAL CELLS COUNTED 100 CELL DIFF
[2017-07-03 06:58] LABS: ANISOCYTOSIS 1+; VERIFY COUNTS? YES
[2017-07-03 07:07] VITALS: BP 124/70
[2017-07-03] MEDS: LEVETIRACETAM 500 MG TABLET PO SCH ×2 (09:05→20:13)
[2017-07-03] MEDS: TBO-FILGRASTIM 480 MCG/0.8 ML SQ SCH (09:05)
[2017-07-03] MEDS: TAMSULOSIN 0.4 MG CAP.ER.24H PO SCH (09:06)
[2017-07-03 12:42] VITALS: BP 131/75
[2017-07-03] MEDS: ONDANSETRON ODT 8 MG PO PRN (17:06)
[2017-07-03] MEDS: OXYcodone/APAP 5/325MG TABLET PO PRN (20:13)
[2017-07-03 20:51] VITALS: BP 127/74
[2017-07-04] VITALS (7 sets, daily range): BP systolic 109–135; BP diastolic 65–75
[2017-07-04] MEDS: OXYcodone/APAP 5/325MG TABLET PO PRN (03:22)
[2017-07-04] MEDS: CEFEPIME 2 GM in DEXTROSE 5% 50 ML IV SCH ×3 (05:00→21:02)
[2017-07-04 05:41] LABS: HEMATOCRIT 26.7 % (39.2-51.8); HEMOGLOBIN 9.4 g/dL (13.7-18.0); WHITE BLOOD COUNT 2.6 x10^3/uL (3.4-10)
[2017-07-04 05:57] LABS: ASPARTATE AMINO TRANSFERASE 17 U/L (15-37); BLOOD UREA NITROGEN 12 mg/dL (7-18)
[2017-07-04] MEDS ORDERED: DIPHENHYDRAMINE 50 MG CAPSULE PO PRN (06:30)
[2017-07-04] MEDS ORDERED: ACETAMINOPHEN 325 MG TABLET PO PRN (06:30)
[2017-07-04 07:41] LABS: DIFF TOTAL CELLS COUNTED 50 CELL DIFFERENTIAL
[2017-07-04 07:42] LABS: ANISOCYTOSIS 1+; VERIFY COUNTS? YES
[2017-07-04] MEDS ORDERED: DIPHENHYDRAMINE 25 MG CAPSULE PO PRN (09:22)
[2017-07-04] MEDS: TBO-FILGRASTIM 480 MCG/0.8 ML SQ SCH (09:36)
[2017-07-04] MEDS: LEVETIRACETAM 500 MG TABLET PO SCH ×2 (09:37→21:02)
[2017-07-04] MEDS: TAMSULOSIN 0.4 MG CAP.ER.24H PO SCH (09:37)
[2017-07-04] MEDS: ONDANSETRON ODT 8 MG PO PRN (21:12)
[2017-07-05 01:27] VITALS: BP 127/77
[2017-07-05] MEDS: CEFEPIME 2 GM in DEXTROSE 5% 50 ML IV SCH ×3 (04:52→21:25)
[2017-07-05 05:19] LABS: HEMATOCRIT 24.9 % (39.2-51.8); HEMOGLOBIN 8.8 g/dL (13.7-18.0); WHITE BLOOD COUNT 24.6 x10^3/uL (3.4-10)
[2017-07-05 05:31] LABS: ASPARTATE AMINO TRANSFERASE 25 U/L (15-37); BLOOD UREA NITROGEN 11 mg/dL (7-18)
[2017-07-05 06:15] LABS: DIFF TOTAL CELLS COUNTED 100 CELL DIFF
[2017-07-05 06:21] LABS: ANISOCYTOSIS 1+
[2017-07-05 06:36] LABS: VERIFY COUNTS? YES
[2017-07-05 07:18] VITALS: BP 123/72
[2017-07-05] MEDS: TAMSULOSIN 0.4 MG CAP.ER.24H PO SCH (08:02)
[2017-07-05] MEDS: LEVETIRACETAM 500 MG TABLET PO SCH ×2 (08:02→22:41)
[2017-07-05] MEDS: TBO-FILGRASTIM 480 MCG/0.8 ML SQ SCH (09:00)
[2017-07-05 12:58] VITALS: BP 113/68
[2017-07-05 19:35] VITALS: BP 106/68
[2017-07-06 01:07] VITALS: BP 99/61
[2017-07-06] MEDS: CEFEPIME 2 GM in DEXTROSE 5% 50 ML IV SCH (05:14)
[2017-07-06 06:12] LABS: HEMATOCRIT 24.2 % (39.2-51.8); HEMOGLOBIN 8.4 g/dL (13.7-18.0)
[2017-07-06 06:25] LABS: ASPARTATE AMINO TRANSFERASE 21 U/L (15-37); BLOOD UREA NITROGEN 10 mg/dL (7-18)
[2017-07-06 06:31] LABS: WHITE BLOOD COUNT 54.4 x10^3/uL (3.4-10)
[2017-07-06 06:50] VITALS: BP 105/57
[2017-07-06 08:04] LABS: DIFF TOTAL CELLS COUNTED 100 CELL DIFF
[2017-07-06 09:01] LABS: ANISOCYTOSIS 1+; VERIFY COUNTS? YES
[2017-07-06] MEDS: TAMSULOSIN 0.4 MG CAP.ER.24H PO SCH (10:27)
[2017-07-06] MEDS: LEVETIRACETAM 500 MG TABLET PO SCH (10:27)
[2017-07-06 13:07] VITALS: BP 109/72
== END 2017-07-06 13:00 | disposition home or self-care (01) | DRG 846 ==
LOC: EDIP 08:57 → UNDOADMIN 08:57 → 3NW 08:57
PROVIDERS: ADMIT Internal Medicine Hematology & Oncology; ATTEND Internal Medicine Hematology & Oncology
PROC: 3E04305 Introduction of Other Antineoplastic into Central Vein, Percutaneous Approach (ICD-10-PCS; 2017-06-23)
PROC: 3E04305 Introduction of Other Antineoplastic into Central Vein, Percutaneous Approach (ICD-10-PCS; 2017-06-24)
PROC: 3E04305 Introduction of Other Antineoplastic into Central Vein, Percutaneous Approach (ICD-10-PCS; 2017-06-25)
PROC: 30233N1 Transfusion of Nonautologous Red Blood Cells into Peripheral Vein, Percutaneous Approach (ICD-10-PCS; principal; 2017-06-26)
PROC: 3E04305 Introduction of Other Antineoplastic into Central Vein, Percutaneous Approach (ICD-10-PCS; 2017-06-26)
PROC: 3E04305 Introduction of Other Antineoplastic into Central Vein, Percutaneous Approach (ICD-10-PCS; 2017-06-27)
PROC: 3E04305 Introduction of Other Antineoplastic into Central Vein, Percutaneous Approach (ICD-10-PCS; 2017-06-28)
PROC: 30233R1 Transfusion of Nonautologous Platelets into Peripheral Vein, Percutaneous Approach (ICD-10-PCS; 2017-07-04)
DX: Z51.11 Encounter for antineoplastic chemotherapy (principal); D61.810 Antineoplastic chemotherapy induced pancytopenia; J18.9 Pneumonia, unspecified organism; C83.39 Diffuse large B-cell lymphoma, extranodal and solid organ sites; T45.1X5A Adverse effect of antineoplastic and immunosuppressive drugs, initial encounter; Y92.89 Other specified places as the place of occurrence of the external cause; I10 Essential (primary) hypertension; N40.0 Benign prostatic hyperplasia without lower urinary tract symptoms; Y95 Nosocomial condition; M54.5 Low back pain
CPT/HCPCS: 36415; 71010; 71020; 80053; 80375; 81001; 81003; 82248; 83605; 83615; 83735; 85025; 85651; 86140; 86850; 86900; 86923; 87040; J0692; J1100; J1650; J2405; J3370; J7070; J9100; J9250; Q0162; G0480; J0640; J1447; J7030; J7050; P9016; P9037; Q0163; S0028

== ENCOUNTER 2017-07-22 16:53 | Emergency (ER) | payer MEDICARE ==
[~2017-07-22] VITALS: Ht 170.2 cm; Wt 85.7 kg
[2017-07-22 17:33] LABS: HEMATOCRIT 35.8 % (39.2-51.8); HEMOGLOBIN 11.6 g/dL (13.7-18.0); WHITE BLOOD COUNT 9.7 x10^3/uL (3.4-10)
[2017-07-22] MEDS ORDERED: FAMOTIDINE 20 MG/2 ML ONE (17:40)
[2017-07-22] MEDS ORDERED: ONDANSETRON 2MG/ML, 2ML ONE (17:40)
[2017-07-22 17:45] LABS: BLOOD UREA NITROGEN 8 mg/dL (7-18)
[2017-07-22] MEDS ORDERED: ONDANSETRON 2MG/ML, 2ML IVPush ONE (18:00)
[2017-07-22] MEDS ORDERED: SODIUM CHLORIDE 0.9% 1,000ML IVBOLUS ONE (18:00)
[2017-07-22] MEDS ORDERED: FAMOTIDINE 20 MG/2 ML IVP ONE (18:00)
[2017-07-22] MEDS ORDERED: SODIUM CHLORIDE 0.9% 1,000 ML IV ONE (18:00)
[2017-07-22 18:13] LABS: DIFF TOTAL CELLS COUNTED 100 CELL DIFF
[2017-07-22 18:59] LABS: VERIFY COUNTS? YES
[2017-07-22 19:00] LABS: ANISOCYTOSIS 1+; OVALOCYTES 1+; POLYCHROMASIA 1+
[2017-07-22 21:12] VITALS: BP 140/83
== END 2017-07-22 21:15 | disposition home or self-care (01) ==
LOC: ED 17:37
DX: R50.9 Fever, unspecified (principal); J01.00 Acute maxillary sinusitis, unspecified; I10 Essential (primary) hypertension
CPT/HCPCS: 36415; 71020; 80048; 81003; 82040; 83605; 85025; 96361; 96374; 96375; 99285; J2405; J7030; S0028

== ENCOUNTER → 2017-09-08 | Outpatient (CLI) | payer MEDICARE ==
[~2017-09-08] MED LIST changes: +ALPR-475 PO; +AMOX-291 PO; +HYDR-3240 PO; +ONDA4TAB13 SL; +PANT40TA3 PO
== END | disposition home or self-care (01) ==
LOC: ROC 09:27
PROVIDERS: ATTEND Radiology Radiation Oncology
DX: C85.99 Non-Hodgkin lymphoma, unspecified, extranodal and solid organ sites (principal); C79.31 Secondary malignant neoplasm of brain; F41.9 Anxiety disorder, unspecified; I10 Essential (primary) hypertension; N40.0 Benign prostatic hyperplasia without lower urinary tract symptoms
CPT/HCPCS: 99214; G0463

== ENCOUNTER → 2017-10-22 | Outpatient (CLI) | payer MEDICARE | END | disposition home or self-care (01) | LOC: ROC 14:50 | PROVIDERS: ATTEND Radiology Radiation Oncology | DX: C85.99 Non-Hodgkin lymphoma, unspecified, extranodal and solid organ sites (principal); Z92.3 Personal history of irradiation | CPT/HCPCS: 99212; G0463 ==

== ENCOUNTER → 2017-11-04 | Outpatient (CLI) | payer MEDICARE ==
[~2017-11-04] MED LIST changes: +GADOBUTROL 10 MMOL/10 ML PFS ONE
== END | disposition home or self-care (01) ==
LOC: RAD 12:22
PROVIDERS: ATTEND Internal Medicine Hematology & Oncology
DX: C83.31 Diffuse large B-cell lymphoma, lymph nodes of head, face, and neck (principal)
CPT/HCPCS: 70553; A9585

== ENCOUNTER 2017-11-11 20:04 | Inpatient (IN) | payer MEDICARE ==
[~2017-11-11] VITALS: Ht 172.7 cm; Wt 81.7 kg
[~2017-11-11 20:04] MED LIST changes: -GADOBUTROL 10 MMOL/10 ML PFS ONE
[2017-11-11] MEDS ORDERED: SODIUM CHLORIDE FLUSH 10ML SYR IVF ONE (20:30)
[2017-11-11 20:53] LABS: BASOPHILS # (AUTO) 0.02 x10^3/uL (0-0.1); BASOPHILS % (AUTO) 1 % (0-1); EOSINOPHILS # (AUTO) 0.01 x10^3/uL (0-0.4); EOSINOPHILS % (AUTO) 0 % (1-7); LYMPHOCYTES % (AUTO) 17 % (22-44); MD NO; MEAN CORPUSCULAR HEMOGLOBIN 30.8 pg (27.5-34.5); MEAN CORPUSCULAR HGB CONC 34.7 g/dL (33.2-36.2); MEAN CORPUSCULAR VOLUME 88.6 fL (81-97); MEAN PLATELET VOLUME 7.6 fL (7.4-10.4); MONOCYTES # (AUTO) 0.22 x10^3/uL (0.2-0.8); MONOCYTES % (AUTO) 5 % (2-9); NEUTROPHILS # (AUTO) 3.77 x10^3/uL (1.8-6.8); NEUTROPHILS % (AUTO) 78 % (42-75); PLATELET COUNT 142 x10^3/uL (130-400); RED BLOOD COUNT 3.76 x10^6/uL (4.38-5.82); RED CELL DISTRIBUTION WIDTH 17.9 % (9.4-14.8)
[2017-11-11 21:01] LABS: TROPONIN I < 0.015 ng/mL (0.000-0.045)
[2017-11-11 21:03] LABS: ALANINE AMINOTRANSFERASE 28 U/L (12-78); ALBUMIN 2.4 g/dL (3.4-5.0); ANION GAP 11 mmol/L (5-15); CALCIUM 7.6 mg/dL (8.5-10.1); CHLORIDE 101 mmol/L (98-107); CREATININE 0.69 mg/dL (0.7-1.3)
[2017-11-11 21:08] LABS: ALKALINE PHOSPHATASE 104 U/L (45-117); BILIRUBIN,TOTAL 1.3 mg/dL (0.2-1.0); TOTAL PROTEIN 6.5 g/dL (6.4-8.2)
[2017-11-11 21:51] LABS: MICROSCOPIC NOT IND
[2017-11-11 21:52] LABS: CULTURE INDICATED? NO
[2017-11-11] MEDS ORDERED: FUROSEMIDE 20 MG/2 ML IV ONE (22:00)
[2017-11-11] MEDS ORDERED: FUROSEMIDE 40 MG/4 ML ONE (22:17)
[2017-11-11 23:00] LABS: RAPID INFLUENZA A Negative (Negative); RAPID INFLUENZA B Negative (Negative)
[2017-11-11] MEDS ORDERED: ONDANSETRON ODT 4 MG PO PRN (23:00)
[2017-11-11] MEDS ORDERED: HYDROcodone/APAP 5/325 TABLET PO PRN (23:00)
[2017-11-11] MEDS: LEVETIRACETAM 500 MG TABLET PO SCH (23:00)
[2017-11-11] MEDS ORDERED: SODIUM CHLORIDE 0.9% 1,000 ML IV SCH (23:03)
[2017-11-11] MEDS ORDERED: DEXAMETHASONE 4 MG TABLET ONE (23:16)
[2017-11-11] MEDS ORDERED: ENOXAPARIN 40 MG/0.4 ML ONE (23:16)
[2017-11-11] MEDS ORDERED: PIPERACILLIN/TAZO/PMX 3.375GM 50 ML ONE (23:17)
[2017-11-11] MEDS ORDERED: POLYETHYLENE GLYCOL 17 GM PACKET PO PRN (23:30)
[2017-11-11] MEDS ORDERED: ACETAMINOPHEN 325 MG TABLET PO PRN (23:30)
[2017-11-11] MEDS: PIPERACILLIN/TAZO/PMX 3.375GM 50 ML IV SCH (23:30)
[2017-11-11] MEDS ORDERED: ONDANSETRON 2MG/ML, 2ML IVPush PRN (23:30)
[2017-11-11] MEDS ORDERED: GLUCAGON 1 MG IM PRN (23:30)
[2017-11-11] MEDS ORDERED: DILTIAZEM 5 MG/ML, 5ML IVPush PRN (23:30)
[2017-11-11] MEDS ORDERED: DOCUSATE 100 MG CAPSULE PO PRN (23:30)
[2017-11-11] MEDS ORDERED: LORazepam 2 MG/ML, 1ML IVPush PRN (23:30)
[2017-11-11] MEDS: ENOXAPARIN 40 MG/0.4 ML SQ SCH (23:30)
[2017-11-11] MEDS ORDERED: DEXTROSE 50%, 50ML SYRINGE IVPush PRN (23:30)
[2017-11-11] MEDS ORDERED: morphine SULFATE 10 MG/ML, 1ML IVPush PRN (23:30)
[2017-11-11] MEDS ORDERED: DEXTROSE 4 GM TAB.CHEW PO PRN (23:30)
[2017-11-11] MEDS: SODIUM CHLORIDE FLUSH 10ML SYR IVF SCH (23:31)
[2017-11-12] MEDS: ENOXAPARIN 40 MG/0.4 ML SQ SCH
[2017-11-12] MEDS: LINEZOLID PMX 600MG/300ML 300 ML IV SCH ×3 (00:08→22:47)
[2017-11-12] MEDS: DEXAMETHASONE 4 MG TABLET PO SCH ×3 (00:09→20:18)
[2017-11-12] MEDS: INSULIN LISPRO 100 UNITS/ML, PEN SQ-INSULIN SCH ×5 (00:21→20:14)
[2017-11-12] MEDS ORDERED: LORazepam 2 MG/ML, 1ML ONE (00:42)
[2017-11-12] MEDS ORDERED: PIPERACILLIN/TAZO/PMX 3.375GM 50 ML ONE (05:58)
[2017-11-12] MEDS: PIPERACILLIN/TAZO/PMX 3.375GM 50 ML IV SCH ×4 (06:20→22:05)
[2017-11-12 06:32] LABS: BASOPHILS # (AUTO) 0.01 x10^3/uL (0-0.1); BASOPHILS % (AUTO) 0 % (0-1); EOSINOPHILS % (AUTO) 0 % (1-7); LYMPHOCYTES # (AUTO) 1.15 x10^3/uL (1-3.4); LYMPHOCYTES % (AUTO) 26 % (22-44); MD NO; MEAN CORPUSCULAR HEMOGLOBIN 30.5 pg (27.5-34.5); MEAN CORPUSCULAR VOLUME 89.7 fL (81-97); MEAN PLATELET VOLUME 7.3 fL (7.4-10.4); MONOCYTES % (AUTO) 5 % (2-9); NEUTROPHILS % (AUTO) 69 % (42-75); PLATELET COUNT 132 x10^3/uL (130-400); RED BLOOD COUNT 3.51 x10^6/uL (4.38-5.82); RED CELL DISTRIBUTION WIDTH 18.1 % (9.4-14.8)
[2017-11-12 06:44] LABS: ANION GAP 8 mmol/L (5-15); CALCIUM 8.1 mg/dL (8.5-10.1); CHLORIDE 101 mmol/L (98-107); CREATININE 0.78 mg/dL (0.7-1.3)
[2017-11-12] MEDS: OXYcodone/APAP 5/325MG TABLET PO PRN ×2 (07:12→22:04)
[2017-11-12] MEDS: SENNA/DOCUSATE TABLET PO SCH (09:00)
[2017-11-12] MEDS: TAMSULOSIN 0.4 MG CAP.ER.24H PO SCH (10:02)
[2017-11-12] MEDS: PANTOPROZOLE 40MG TABLET PO SCH (10:02)
[2017-11-12] MEDS: LEVETIRACETAM 500 MG TABLET PO SCH ×2 (10:02→20:18)
[2017-11-12] MEDS: SODIUM CHLORIDE FLUSH 10ML SYR IVF SCH ×2 (10:03→20:18)
[2017-11-13 04:00] VITALS: BP 102/58
[2017-11-13 04:16] LABS: BASOPHILS # (AUTO) 0.01 x10^3/uL (0-0.1); BASOPHILS % (AUTO) 0 % (0-1); EOSINOPHILS % (AUTO) 0 % (1-7); LYMPHOCYTES # (AUTO) 0.65 x10^3/uL (1-3.4); LYMPHOCYTES % (AUTO) 18 % (22-44); MD NO; MEAN CORPUSCULAR HEMOGLOBIN 30.4 pg (27.5-34.5); MEAN CORPUSCULAR VOLUME 89.3 fL (81-97); MEAN PLATELET VOLUME 7.8 fL (7.4-10.4); MONOCYTES # (AUTO) 0.14 x10^3/uL (0.2-0.8); MONOCYTES % (AUTO) 4 % (2-9); NEUTROPHILS # (AUTO) 2.91 x10^3/uL (1.8-6.8); NEUTROPHILS % (AUTO) 79 % (42-75); PLATELET COUNT 125 x10^3/uL (130-400); RED BLOOD COUNT 3.08 x10^6/uL (4.38-5.82)
[2017-11-13 04:28] LABS: ANION GAP 7 mmol/L (5-15); CALCIUM 7.8 mg/dL (8.5-10.1); CHLORIDE 102 mmol/L (98-107)
[2017-11-13] MEDS: PIPERACILLIN/TAZO/PMX 3.375GM 50 ML IV SCH ×4 (04:36→22:02)
[2017-11-13] MEDS: INSULIN LISPRO 100 UNITS/ML, PEN SQ-INSULIN SCH ×2 (07:00→11:00)
[2017-11-13] MEDS: SODIUM CHLORIDE FLUSH 10ML SYR IVF SCH ×2 (08:56→21:04)
[2017-11-13] MEDS: TAMSULOSIN 0.4 MG CAP.ER.24H PO SCH (08:56)
[2017-11-13] MEDS: PANTOPROZOLE 40MG TABLET PO SCH (08:56)
[2017-11-13] MEDS: SENNA/DOCUSATE TABLET PO SCH (08:56)
[2017-11-13] MEDS: DEXAMETHASONE 4 MG TABLET PO SCH ×2 (08:56→21:04)
[2017-11-13] MEDS: LEVETIRACETAM 500 MG TABLET PO SCH ×2 (08:56→21:04)
[2017-11-13] MEDS: LINEZOLID PMX 600MG/300ML 300 ML IV SCH ×2 (11:42→22:02)
[2017-11-13] MEDS: ENOXAPARIN 40 MG/0.4 ML SQ SCH (21:05)
[2017-11-14 04:00] VITALS: BP 114/68
[2017-11-14 04:18] LABS: MEAN CORPUSCULAR HEMOGLOBIN 30.7 pg (27.5-34.5); MEAN CORPUSCULAR HGB CONC 33.9 g/dL (33.2-36.2); MEAN CORPUSCULAR VOLUME 90.8 fL (81-97); MEAN PLATELET VOLUME 8.1 fL (7.4-10.4); PLATELET COUNT 132 x10^3/uL (130-400); RED BLOOD COUNT 2.95 x10^6/uL (4.38-5.82); RED CELL DISTRIBUTION WIDTH 18.7 % (9.4-14.8)
[2017-11-14 04:26] LABS: ALANINE AMINOTRANSFERASE 24 U/L (12-78); ANION GAP 10 mmol/L (5-15); CALCIUM 7.9 mg/dL (8.5-10.1); CHLORIDE 106 mmol/L (98-107); CREATININE 0.66 mg/dL (0.7-1.3)
[2017-11-14 04:29] LABS: ALKALINE PHOSPHATASE 70 U/L (45-117); BILIRUBIN,TOTAL 0.4 mg/dL (0.2-1.0); TOTAL PROTEIN 5.4 g/dL (6.4-8.2)
[2017-11-14] MEDS: PIPERACILLIN/TAZO/PMX 3.375GM 50 ML IV SCH ×4 (04:47→23:08)
[2017-11-14 05:04] LABS: BASOPHILS # (AUTO) 0.11 x10^3/uL (0-0.1); BASOPHILS % (AUTO) 2 % (0-1); EOSINOPHILS # (AUTO) 0.02 x10^3/uL (0-0.4); EOSINOPHILS % (AUTO) 1 % (1-7); LYMPHOCYTES # (AUTO) 0.59 x10^3/uL (1-3.4); LYMPHOCYTES % (AUTO) 11 % (22-44); MD SCAN; MONOCYTES # (AUTO) 0.31 x10^3/uL (0.2-0.8); MONOCYTES % (AUTO) 6 % (2-9); NEUTROPHILS # (AUTO) 4.23 x10^3/uL (1.8-6.8); NEUTROPHILS % (AUTO) 80 % (42-75)
[2017-11-14] MEDS: SENNA/DOCUSATE TABLET PO SCH (07:41)
[2017-11-14] MEDS: PANTOPROZOLE 40MG TABLET PO SCH (07:49)
[2017-11-14] MEDS: DEXAMETHASONE 4 MG TABLET PO SCH ×2 (07:49→20:16)
[2017-11-14] MEDS: LEVETIRACETAM 500 MG TABLET PO SCH ×2 (07:49→20:16)
[2017-11-14] MEDS: TAMSULOSIN 0.4 MG CAP.ER.24H PO SCH (07:49)
[2017-11-14] MEDS: SODIUM CHLORIDE FLUSH 10ML SYR IVF SCH ×2 (07:50→20:16)
[2017-11-14] MEDS: LINEZOLID PMX 600MG/300ML 300 ML IV SCH (12:05)
[2017-11-14 14:15] VITALS: BP 113/67
[2017-11-14 18:53] VITALS: BP 99/61
[2017-11-14] MEDS: ENOXAPARIN 40 MG/0.4 ML SQ SCH (23:55)
[2017-11-15] MEDS: LINEZOLID PMX 600MG/300ML 300 ML IV SCH (00:01)
[2017-11-15 01:44] VITALS: BP 109/65
[2017-11-15] MEDS: PIPERACILLIN/TAZO/PMX 3.375GM 50 ML IV SCH ×4 (04:50→22:44)
[2017-11-15 05:06] LABS: BASOPHILS # (AUTO) 0.01 x10^3/uL (0-0.1); BASOPHILS % (AUTO) 0 % (0-1); EOSINOPHILS % (AUTO) 0 % (1-7); LYMPHOCYTES # (AUTO) 0.72 x10^3/uL (1-3.4); LYMPHOCYTES % (AUTO) 14 % (22-44); MD NO; MEAN CORPUSCULAR HEMOGLOBIN 30.8 pg (27.5-34.5); MEAN CORPUSCULAR HGB CONC 34.1 g/dL (33.2-36.2); MEAN CORPUSCULAR VOLUME 90.4 fL (81-97); MEAN PLATELET VOLUME 8.1 fL (7.4-10.4); MONOCYTES # (AUTO) 0.34 x10^3/uL (0.2-0.8); MONOCYTES % (AUTO) 7 % (2-9); NEUTROPHILS % (AUTO) 79 % (42-75); PLATELET COUNT 150 x10^3/uL (130-400); RED BLOOD COUNT 3.16 x10^6/uL (4.38-5.82); RED CELL DISTRIBUTION WIDTH 18.3 % (9.4-14.8)
[2017-11-15 05:19] LABS: ALBUMIN 2.3 g/dL (3.4-5.0); ANION GAP 10 mmol/L (5-15); CALCIUM 8.3 mg/dL (8.5-10.1); CHLORIDE 104 mmol/L (98-107)
[2017-11-15 05:21] LABS: ALANINE AMINOTRANSFERASE 40 U/L (12-78); ALKALINE PHOSPHATASE 72 U/L (45-117); BILIRUBIN,TOTAL 0.5 mg/dL (0.2-1.0); CREATININE 0.67 mg/dL (0.7-1.3); TOTAL PROTEIN 5.8 g/dL (6.4-8.2)
[2017-11-15 06:55] VITALS: BP 140/77
[2017-11-15] MEDS: LEVETIRACETAM 500 MG TABLET PO SCH ×2 (07:54→20:47)
[2017-11-15] MEDS: DEXAMETHASONE 4 MG TABLET PO SCH ×2 (07:55→20:47)
[2017-11-15] MEDS: SENNA/DOCUSATE TABLET PO SCH (07:55)
[2017-11-15] MEDS: SODIUM CHLORIDE FLUSH 10ML SYR IVF SCH ×2 (07:55→21:00)
[2017-11-15] MEDS: TAMSULOSIN 0.4 MG CAP.ER.24H PO SCH (07:55)
[2017-11-15 12:36] VITALS: BP 103/66
[2017-11-15 20:00] VITALS: BP 99/65
[2017-11-15] MEDS: ENOXAPARIN 40 MG/0.4 ML SQ SCH (22:44)
[2017-11-16 04:30] VITALS: BP 143/84
[2017-11-16] MEDS: PIPERACILLIN/TAZO/PMX 3.375GM 50 ML IV SCH ×2 (05:07→11:40)
[2017-11-16 07:02] VITALS: BP 142/79
[2017-11-16] MEDS: SODIUM CHLORIDE FLUSH 10ML SYR IVF SCH ×2 (10:36→21:43)
[2017-11-16] MEDS: TAMSULOSIN 0.4 MG CAP.ER.24H PO SCH (10:36)
[2017-11-16] MEDS: DEXAMETHASONE 4 MG TABLET PO SCH ×2 (10:37→21:39)
[2017-11-16] MEDS: LEVETIRACETAM 500 MG TABLET PO SCH ×2 (10:37→21:39)
[2017-11-16] MEDS: SENNA/DOCUSATE TABLET PO SCH (10:37)
[2017-11-16] MEDS: CEFTRIAXONE PMX 1GM/50ML 50 ML IV SCH (11:44)
[2017-11-16 13:07] VITALS: BP 106/65
[2017-11-16 19:18] VITALS: BP 104/69
[2017-11-16] MEDS: DOXYCYCLINE 100MG CAP PO SCH (21:40)
[2017-11-16] MEDS: ENOXAPARIN 40 MG/0.4 ML SQ SCH (21:40)
[2017-11-17 03:02] VITALS: BP 97/62
[2017-11-17 06:41] VITALS: BP 118/78
[2017-11-17] MEDS: SENNA/DOCUSATE TABLET PO SCH (09:00)
[2017-11-17] MEDS: TAMSULOSIN 0.4 MG CAP.ER.24H PO SCH (09:32)
[2017-11-17] MEDS: DOXYCYCLINE 100MG CAP PO SCH (09:32)
[2017-11-17] MEDS: DEXAMETHASONE 4 MG TABLET PO SCH (09:32)
[2017-11-17] MEDS: SODIUM CHLORIDE FLUSH 10ML SYR IVF SCH (09:32)
[2017-11-17] MEDS: LEVETIRACETAM 500 MG TABLET PO SCH (09:32)
[2017-11-17] MEDS: CEFTRIAXONE PMX 1GM/50ML 50 ML IV SCH (11:37)
[2017-11-17] MEDS ORDERED: CEFD300C37 PO (11:58)
[2017-11-17] MEDS ORDERED: DOXY100C2 PO (11:58)
[2017-11-17 12:36] VITALS: BP 118/74
== END 2017-11-17 13:58 | disposition home or self-care (01) | DRG 871 ==
LOC: ED 21:29 → EDIP 22:33 → CSU 11-12 06:49 → 4NOR 11-12 17:39 → CSU 11-12 18:31 → 3NE 11-14 14:25 → 3NW 11-14 22:48
PROVIDERS: ADMIT Family Medicine; ATTEND Family Medicine
PROC: 5A09357 Assistance with Respiratory Ventilation, Less than 24 Consecutive Hours, Continuous Positive Airway Pressure (ICD-10-PCS; principal; 2017-11-11)
DX: A41.9 Sepsis, unspecified organism (principal); G93.41 Metabolic encephalopathy; J96.01 Acute respiratory failure with hypoxia; I50.33 Acute on chronic diastolic (congestive) heart failure; E44.0 Moderate protein-calorie malnutrition; C85.10 Unspecified B-cell lymphoma, unspecified site; J18.9 Pneumonia, unspecified organism; D89.9 Disorder involving the immune mechanism, unspecified; I11.0 Hypertensive heart disease with heart failure; I35.8 Other nonrheumatic aortic valve disorders; J06.9 Acute upper respiratory infection, unspecified; Z66 Do not resuscitate; Z85.841 Personal history of malignant neoplasm of brain; Z87.891 Personal history of nicotine dependence; Z68.27 Body mass index [BMI] 27.0-27.9, adult
CPT/HCPCS: 36415; 36600; 71045; 80048; 80053; 81003; 82803; 82962; 83605; 83735; 83880; 84484; 85025; 87040; 87081; 87400; 93005; 93306; 93970; 94660; J0696; J1650; J2020; J2543; J1940; J2060; J7030

== ENCOUNTER → 2017-12-21 | Outpatient (CLI) | payer MEDICARE ==
[~2017-12-21] MED LIST changes: +ALBU18HF INH; +CEFD300C37 PO; +DOXY100C2 PO; +GADOBUTROL 10 MMOL/10 ML PFS ONE
== END | disposition home or self-care (01) ==
LOC: RAD 08:53
PROVIDERS: ATTEND Internal Medicine Hematology & Oncology
DX: G93.89 Other specified disorders of brain (principal); M51.26 Other intervertebral disc displacement, lumbar region; M48.07 Spinal stenosis, lumbosacral region; C83.31 Diffuse large B-cell lymphoma, lymph nodes of head, face, and neck
CPT/HCPCS: 70553; 72158; A9585

== ENCOUNTER 2017-12-29 12:28 | Emergency (ER) | payer MEDICARE ==
[~2017-12-29] VITALS: Ht 172.7 cm; Wt 82.3 kg
[~2017-12-29 12:28] MED LIST changes: -ALBU18HF INH; -GADOBUTROL 10 MMOL/10 ML PFS ONE
[2017-12-29] MEDS ORDERED: ALBU18HF INH (13:08)
[2017-12-29] MEDS ORDERED: SODIUM CHLORIDE FLUSH 10ML SYR IVF ONE (13:30)
[2017-12-29 13:33] LABS: BASOPHILS # (AUTO) 0.05 x10^3/uL (0-0.1); BASOPHILS % (AUTO) 1 % (0-1); EOSINOPHILS # (AUTO) 0.03 x10^3/uL (0-0.4); EOSINOPHILS % (AUTO) 0 % (1-7); LYMPHOCYTES # (AUTO) 2.02 x10^3/uL (1-3.4); LYMPHOCYTES % (AUTO) 30 % (22-44); MD NO; MEAN CORPUSCULAR HEMOGLOBIN 31.4 pg (27.5-34.5); MEAN CORPUSCULAR HGB CONC 32.7 g/dL (33.2-36.2); MEAN CORPUSCULAR VOLUME 96.1 fL (81-97); MEAN PLATELET VOLUME 7.8 fL (7.4-10.4); MONOCYTES # (AUTO) 0.84 x10^3/uL (0.2-0.8); MONOCYTES % (AUTO) 12 % (2-9); NEUTROPHILS # (AUTO) 3.86 x10^3/uL (1.8-6.8); NEUTROPHILS % (AUTO) 57 % (42-75); PLATELET COUNT 313 x10^3/uL (130-400); RED BLOOD COUNT 3.91 x10^6/uL (4.38-5.82); RED CELL DISTRIBUTION WIDTH 16.7 % (9.4-14.8)
[2017-12-29 13:42] LABS: INTERNATIONAL NORMALIZED RATIO 1.06 (0.93-1.1); PROTHROMBIN TIME 10.9 Seconds (9.6-11.5)
[2017-12-29 13:44] LABS: ALANINE AMINOTRANSFERASE 33 U/L (12-78); ALBUMIN 3.6 g/dL (3.4-5.0); ANION GAP 9 mmol/L (5-15); CALCIUM 8.4 mg/dL (8.5-10.1); CHLORIDE 106 mmol/L (98-107)
[2017-12-29 13:49] LABS: ALKALINE PHOSPHATASE 77 U/L (45-117); BILIRUBIN,TOTAL 0.6 mg/dL (0.2-1.0); CREATININE 0.76 mg/dL (0.7-1.3); TROPONIN I < 0.015 ng/mL (0.000-0.045)
[2017-12-29] MEDS ORDERED: OMNIPAQUE 350 MG/ML, 100ML BOTTLE ONE (16:07)
[2017-12-29 16:50] VITALS: BP 124/79
== END 2017-12-29 17:36 | disposition home or self-care (01) ==
LOC: ED 14:12
DX: E86.0 Dehydration (principal); D69.6 Thrombocytopenia, unspecified; I10 Essential (primary) hypertension; Z85.72 Personal history of non-Hodgkin lymphomas; Z87.891 Personal history of nicotine dependence
CPT/HCPCS: 36415; 71046; 71275; 80053; 83605; 83880; 84484; 85025; 85610; 85730; 87040; 93005; 99285; Q9967

== ENCOUNTER → 2018-03-18 | Outpatient (CLI) | payer MEDICARE ==
[~2018-03-18] MED LIST changes: +ALBU18HF INH; +GADOBUTROL 7.5 MMOL/7.5 ML VIAL ONE
== END | disposition home or self-care (01) ==
LOC: RAD 10:19
PROVIDERS: ATTEND Internal Medicine Hematology & Oncology
DX: G93.89 Other specified disorders of brain (principal); C83.31 Diffuse large B-cell lymphoma, lymph nodes of head, face, and neck
CPT/HCPCS: 70553; A9585

== ENCOUNTER → 2018-06-14 | Outpatient (CLI) | payer MEDICARE ==
[~2018-06-14] MED LIST changes: +GADOBUTROL 10 MMOL/10 ML PFS ONE; -GADOBUTROL 7.5 MMOL/7.5 ML VIAL ONE
== END | disposition home or self-care (01) ==
LOC: RAD 07:19
PROVIDERS: ATTEND Internal Medicine Hematology & Oncology
DX: H70.92 Unspecified mastoiditis, left ear (principal); C83.31 Diffuse large B-cell lymphoma, lymph nodes of head, face, and neck; C79.31 Secondary malignant neoplasm of brain; D61.810 Antineoplastic chemotherapy induced pancytopenia; D70.9 Neutropenia, unspecified
CPT/HCPCS: 70553; A9585

== ENCOUNTER 2018-07-13 09:39 | Day surgery (SDC) | payer MEDICARE ==
[~2018-07-13] VITALS: Ht 167.6 cm; Wt 80.6 kg
[~2018-07-13 09:39] MED LIST changes: -GADOBUTROL 10 MMOL/10 ML PFS ONE
[2018-07-13 10:13] VITALS: BP 133/83
[2018-07-13] MEDS ORDERED: LIDOCAINE-MPF 1%, 5ML ONE (10:23)
[2018-07-13] MEDS ORDERED: SODIUM CHLORIDE 0.9% 1,000 ML IV SCH (10:30)
[2018-07-13] MEDS ORDERED: FLUMAZENIL 0.1 MG/1 ML, 5ML ONE (10:46)
[2018-07-13] MEDS ORDERED: FENTANYL PF 100 MCG/2ML ONE (10:46)
[2018-07-13] MEDS ORDERED: MIDAZOLAM 1 MG/ML, 5ML ONE (10:46)
[2018-07-13] MEDS ORDERED: NALOXONE 1 MG/ML, 2ML ONE (10:46)
== END 2018-07-13 12:28 | disposition home or self-care (01) ==
LOC: OUT 09:39
PROVIDERS: ATTEND Internal Medicine Hematology & Oncology
DX: Z45.2 Encounter for adjustment and management of vascular access device (principal); C83.31 Diffuse large B-cell lymphoma, lymph nodes of head, face, and neck; I10 Essential (primary) hypertension
CPT/HCPCS: 36590; 77001; 99156; 99157; J2250; J3010; J7030; J2310

== ENCOUNTER → 2018-09-17 | Outpatient (CLI) | payer MEDICARE ==
[~2018-09-17] MED LIST changes: +GADOBUTROL 10 MMOL/10 ML PFS ONE
== END | disposition home or self-care (01) ==
LOC: CFH 10:51
PROVIDERS: ATTEND Internal Medicine Hematology & Oncology
DX: C83.31 Diffuse large B-cell lymphoma, lymph nodes of head, face, and neck (principal); H70.892 Other mastoiditis and related conditions, left ear; R60.9 Edema, unspecified
CPT/HCPCS: 70553; 82565; A9585

== ENCOUNTER → 2018-11-22 | Outpatient (CLI) | payer MEDICARE ==
[~2018-11-22] MED LIST changes: -GADOBUTROL 10 MMOL/10 ML PFS ONE; +GADOBUTROL 7.5 MMOL/7.5 ML PFS ONE
== END | disposition home or self-care (01) ==
LOC: CFH 09:03
PROVIDERS: ATTEND Internal Medicine Hematology & Oncology
DX: C83.31 Diffuse large B-cell lymphoma, lymph nodes of head, face, and neck (principal); G93.89 Other specified disorders of brain
CPT/HCPCS: 70553; A9585